=== PATIENT | female | born 1940 | race Caucasian/White ===

== ENCOUNTER 2022-01-25 19:50 | Emergency (ER) | payer MEDICARE, SELFPAY ==
--- NOTE | 2022-01-25 19:53 | XRR_ITS ---
PROCEDURE INFORMATION: Exam: XR Chest Exam date and time: 01/25/2022 8:37 PM Age: 81 years old Clinical indication: Pain; Other: Chest tightness; Additional info: Cp TECHNIQUE: Imaging protocol: XR of the chest. Views: 1 view. COMPARISON: No relevant prior studies available. FINDINGS: Lungs: Calcified granuloma in the right mid lung. Mild atelectasis or scarring in the left lung base. Pleural spaces: Unremarkable. No pleural effusion. No pneumothorax. Heart/Mediastinum: Unremarkable. No cardiomegaly. Bones/joints: Unremarkable. XR/XR chest 1V portable [id number] IMPRESSION: No acute finding.
--- NOTE | 2022-01-25 19:54 | ECG_ITS ---
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 Measurements Intervals [place] Rate: 87 P: 74 [place]: 198 QRS: -38 QRSD: 113 T: 19 QT: 286 QTc: 345 Interpretive Statements SINUS RHYTHM LEFT AXIS DEVIATION [QRS AXIS < -30] SEPTAL MYOCARDIAL INFARCTION , OF INDETERMINATE AGE [40+ ms Q WAVE IN V1/V2] No previous ECG available for comparison Electronically Signed On 01-25-2022 20:14:41 CDT by Ulysses Perez M.D. [id number]
[2022-01-25 20:01] VITALS: BP 118/67; PULSE 91; RESP 16; TEMP 36.4; O2SAT 95; BMI 22.3
--- NOTE | 2022-01-25 20:46 | W.ED.CHESTPA ---
HPI - Chest Pain General: Chief Complaint: Chest Pain Stated Complaint: Chest is tight Time Seen by Provider: 01/25/22 20:34 History of Present Illness: Patient is a 81-year-old female who comes to the ED with chest tightness. Symptoms started in the afternoon today. She denies that there is any chest pain and just describes it as feeling short of breath and tight when she breathes. Denies any history of COPD, heart failure or past IN. Patient said that her daughter earlier this week and she came down to [place] today to help with the preparations. She is staying at a friend's house and says that home is really warm and stuffy and when they returned to her friend's house after the home is when she started developing the symptoms. She was saying she cannot breathe because it so stuffy in the house. She says the only medication she takes is a pain med that helps with her chronic back pain. Denies any history of hypertension, diabetes and denies any other daily medications. Associated symptoms: Reports dyspnea; Deny abdominal pain, fever(s), nausea, palpitations or vomiting Review of Systems Const: Denies: fever(s), chills or fatigue Eyes: Denies: change in vision or eye discomfort ENMT: Denies: throat pain, odynophagia, nasal discharge or nasal congestion Card: Denies: chest pain, palpitations, edema, swelling of feet/ankles, dyspnea on exertion or orthopnea Resp: Reports: dyspnea; Denies: productive cough or non-productive cough GI: Denies: abdominal pain, nausea, vomiting, diarrhea, constipation or hematochezia : Denies: flank pain, dysuria or hematuria Musc: Denies: neck pain, back pain or extremity swelling Skin/Breast: Denies: rash or new lesions Neuro: Denies: headache(s), numbness in extremities or weakness in extremities PFSH ED PFSH: Surgical History No pertinent past surgical history Physical Exam Const: COMMON NORMALS: no acute distress, patient oriented x3 and alert GENERAL APPEARANCE: cooperative and comfortable HENMT: COMMON NORMALS: normocephalic HEAD & SCALP: normocephalic MOUTH: Normal oral and palatal mucosa present THROAT: posterior oropharynx normal and uvula midline Neck/C-Spine: COMMON NORMALS: supple GENERAL: Yes normal visual inspection Resp: COMMON NORMALS: normal respiratory effort, No retractions, No use of accessory muscles and clear to auscultation bilaterally AUSCULTATION: clear to auscultation bilaterally OTHER: Patient appeared in no respiratory distress and is not using any accessory muscles to breathe. Cardio: COMMON NORMALS: regular rate, regular rhythm, S1 normal heart sound present, No gallops present (Cardio), No clicks present (Cardio) and Peripheral pulses 2+ throughout RATE: regular rate RHYTHM: regular rhythm HEART SOUNDS: S1 normal heart sound present and Murmur heart sound present systolic Intensity: III/ PERIPHERAL PULSES: Peripheral pulses 2+ throughout GI: COMMON NORMALS: Normal to inspection, nondistended, normoactive bowel sounds present, Soft to palpation, non-tender and no masses PALPATION: Yes Soft to palpation : COMMON NORMALS: Yes no CVA tenderness BLADDER/KIDNEY EXAM: Yes no CVA tenderness Back/Pelvis: COMMON NORMALS: no CVA tenderness Extremity: COMMON NORMALS: normal to inspection and no pedal edema Neuro: COMMON NORMALS: patient oriented x3 and moves all extremities SENSORIUM/ORIENTATION: Yes alert Skin: GENERAL SKIN EXAM: dry skin Course Vital Signs: Vital signs: Vital Signs Temperature 97.6 F 01/25/22 20:01 Pulse Rate 91 01/25/22 20:01 Respiratory Rate 16 01/25/22 20:01 Blood Pressure 118/67 01/25/22 20:01 Pulse Oximetry 95 01/25/22 20:01 MDM - Chest Pain Medical Decision Making Patient is a 81-year-old female comes to the ED with chest tightness and shortness of breath. She denies any chest pain. Patient is healthy for age and does not have any cardiac or lung history. Patient lives in [place] and came here to [place] because her daughter and they are having her this weekend. She thinks some of her symptoms are due to the stress of daughter passing. Vitals are stable patient's O2 sats 95% on room air. She appears nontoxic and in no acute distress or pain. Lungs were clear to station bilaterally and patient does have a systolic murmur upon exam. Patient is a EKG showed no acute findings. Labs and chest x-ray ordered and are pending. Patient did not want to stay here in the ED and do any further testing. I discussed with patient the risks of her leaving and trying to get her to stay for testing. Patient understood and said she will sign an AMA form. I told her to come back to the ED immediately if she is still having any chest pain or shortness of breath. She signed an AMA form and left ED. 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
--- NOTE | 2022-01-25 21:07 | PC.NURSE ---
Pt stated I need to leave I don't want to wait. I got to get home now. Pt signed AMA paper and was transferred out via wheel chair.
--- NOTE | 2022-01-25 21:20 | PC.NURSE ---
Pt was educated on the risks of leaving AMA including . Pt stated that she understood but she was still leaving. She denied any chest pain and stated that she just wanted to get home and go to bed becuase she was tired and had not slept but 4 hours. PT was wheeled out of ED to private car and told to please come back if symptoms return.
== END 2022-01-25 21:47 | disposition left against medical advice (07) ==
PROVIDERS: Emergency Provider Physician Assistant
DX: R07.9 Chest pain, unspecified (principal); Z53.29 Procedure and treatment not carried out because of patient's decision for other reasons
CPT/HCPCS: 71045; 93005; 99284

== ENCOUNTER 2024-01-12 10:37 | Emergency (ER) | payer MEDICARE, SELFPAY ==
--- NOTE | 2024-01-12 10:39 | ECG_ITS ---
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 Measurements Intervals [place] Rate: 77 P: 63 [place]: 206 QRS: 15 QRSD: 101 T: 49 QT: 338 QTc: 383 Interpretive Statements SINUS RHYTHM INDETERMINATE AXIS PATTERN CONSISTENT WITH PULMONARY DISEASE Compared to ECG 01/25/2022 20:04:38 Indeterminate axis now present Left-axis deviation no longer present Myocardial infarct finding no longer present Electronically Signed On 01-12-2024 22:49:25 CDT by Jorge Matt M.D. [id number]
--- NOTE | 2024-01-12 10:39 | XRR_ITS ---
PROCEDURE INFORMATION: Exam: XR Chest Exam date and time: 01/12/2024 11:09 AM Age: 83 years old Clinical indication: Cough and dyspnea and shortness of breath; Additional info: Dyspnea/cough TECHNIQUE: Imaging protocol: Radiologic exam of the chest. Views: 1 view. COMPARISON: CR XR chest 1V portable [id number] 01/25/2022 8:37 PM FINDINGS: Lungs: Calcified granulomas again noted. No significant airspace consolidation concerning for pneumonia. Pleural spaces: No pneumothorax. No large pleural effusion. Heart/Mediastinum: The cardiomediastinal silhouette is within normal limits. Bones/joints: Unremarkable. XR/XR chest 1V portable [id number] IMPRESSION: No acute cardiopulmonary abnormality identified.
[2024-01-12 10:44] VITALS: BP 114/80; PULSE 78; TEMP 36.7; O2SAT 93; BMI 28.8
[2024-01-12 11:07] VITALS: BP 95/60; PULSE 76; RESP 20; O2SAT 92
[2024-01-12 11:14] LABS: Basophils # 0.1 10^3/uL (0.0-0.1); Basophils % 0.6 %; Eosinophils # 0.3 10^3/uL (0.0-0.8); Hematocrit 36.8 % (36-47); Lymphocytes # 1.8 10^3/uL (0.8-4.8); Mean Corpuscular HGB Conc 34.8 g/dL (30-55); Mean Corpuscular Hemoglobin 29.5 pg (27-33); Mean Corpuscular Volume 84.8 fl (85-98); Mean Platelet Volume 9.8 fL (7.4-10.4); Monocytes # 1.1 10^3/uL (0.2-0.9); Monocytes % 11.2 %; Neutrophils # 6.35 10^3/uL (1.8-7.7); Neutrophils % 65.8 %; Nucleated Red Blood Cells % 0 %; Platelet Count 201 10^3/cmm (157-399); Red Blood Count 4.34 10^6/uL (3.85-5.65); White Blood Count 9.65 10^3/uL (3.29-11.43)
--- NOTE | 2024-01-12 11:16 | PC.PHAR ---
PT IS FROM [facility]
--- NOTE | 2024-01-12 11:21 | ED_ITS ---
HPI - SOB/Dyspnea 2 General: Chief Complaint: Shortness of Breath/Dyspnea Stated Complaint: SOB Time Seen by Provider: 01/12/24 10:39 Source: patient Mode of arrival: ambulatory History of Present Illness: HPI Narrative: 83-year-old female who presents to the mergency room with complaints of shortness of breath. She says increased swelling in her legs as well as some mild orthopnea as demonstrated during the course of exam she denies chest pain no fever sweats or chills [place]. On arrival her oxygen sat is 92 to 93% on room air blood pressure is slightly low at 95/60. MD elicited complaint: shortness of breath Associated symptoms: Reports orthopnea; Deny abdominal pain, chest pain, fever(s), nausea, palpitations or vomiting Review of Systems 2 Const: Denies: fever(s) or chills Card: Reports: edema, swelling of feet/ankles, dyspnea on exertion and orthopnea; Denies: chest pain or palpitations Resp: Reports: dyspnea GI: Denies: abdominal pain, nausea or vomiting : Denies: dysuria, urinary frequency or urinary urgency Musc: Denies: neck pain or back pain Skin/Breast: Denies: rash PFSH ED 2 PFSH: Surgical History No pertinent past surgical history Physical Exam 2 Const: GENERAL APPEARANCE: cooperative and comfortable O RIENTATION/CONSCIOUSNESS: Yes awake HENMT: COMMON NORMALS: normocephalic, atraumatic and hearing grossly normal bilaterally HEAD & SCALP: normocephalic and atraumatic Resp: COMMON NORMALS: normal respiratory effort, No retractions and No use of accessory muscles AUSCULTATION: crackles Cardio: COMMON NORMALS: regular rate, regular rhythm and No murmurs present (Cardio) RATE: regular rate RHYTHM: regular rhythm GI: COMMON NORMALS: Soft to palpation and No hepatosplenomegaly present A USCULTATION: Yes normoactive bowel sounds PALPATION: Yes Soft to palpation, No Tenderness to palpation present (GI), No Guarding due to palpation present (GI) and Yes No hepatosplenomegaly present Extremity: COMMON NORMALS: normal to inspection, capillary refill normal, no clubbing, cyanosis or edema, no calf tenderness and no pedal edema Skin: COMMON NORMALS: no rashes or lesions noted GENERAL SKIN EXAM: no rashes or lesions noted Course 2 Vital Signs: Vital signs: Vital Signs Temperature 98.1 F 01/12/24 10:44 Pulse Rate 85 01/12/24 14:34 Respiratory Rate 16 01/12/24 14:34 Blood Pressure 115/91 01/12/24 14:34 Pulse Oximetry 94 01/12/24 14:34 Oxygen Delivery Me thod Room Air 01/12/24 12:30 MDM - SOB/Dyspnea Medical Decision Making Fluid overloaded but no decompensated congestive heart failure at this time. She is on hydrochlorothiazide we will add Lasix 20 mg daily and potassium supplement as well. She was given diuretic here will discharge patient home and have her follow-up with primary care through the senior care. Oxygen sats remain well compensated on 2 L which is typical for her. Medical Records I reviewed the patient's medical records. Lab Data I reviewed the patient's lab results. 01/12/24 10:50 01/12/24 10:50 Labs/Radiology: Radiology Impressions Chest X-Ray 01/12/24 10:39 IMPRESSION: No acute cardiopulmonary abnormality identified. Laboratory Results WBC 9.65 10^3/uL (3.29-11.43) 01/12/24 10:50 RBC 4.34 10^6/uL (3.85-5.65) 01/12/24 10:50 Hgb 12.80 g/dL (11.27-16.99) 01/12/24 10:50 Hct 36.8 % (36-47) 01/12/24 10:50 MCV 84.8 fl (85-98) L 01/12/24 10:50 MCH 29.5 pg (27-33) 01/12/24 10:50 MCHC 34.8 g/dL (30-55) 01/12/24 10:50 RDW 14.0 % (12.1-15.1) 01/12/24 10:50 Plt Count 201 10^3/cmm (157-399) 01/12/24 10:50 MPV 9.8 fL (7.4-10.4) 01/12/24 10:50 Neut % (Auto) 65.8 % 01/12/24 10:50 Lymph % (Auto) 19.0 % 01/12/24 10:50 [place] % (Auto) 11.2 % 01/12/24 10:50 Eos % (Auto) 3.0 % 01/12/24 10:50 Baso % (Auto) 0.6 % 01/12/24 10:50 Neut # (Auto) 6.35 10^3/uL (1.8-7.7) 01/12/24 10:50 Lymph # (Auto) 1.8 10^3/uL (0.8-4.8) 01/12/24 10:50 [place] # (Auto) 1.1 10^3/uL (0.2-0.9) H 01/12/24 10:50 Eos # (Auto) 0.3 10^3/uL (0.0-0.8) 01/12/24 10:50 Baso # (Auto) 0.1 10^3/uL (0.0-0.1) 01/12/24 10:50 Nucleated RBC % (auto) 0 % 01/12/24 10:50 Nucleated RBCs # 0.0 /100WBC 01/12/24 10:50 Sodium 134 mmol/L (136-145) L 01/12/24 10:50 Potassium 3.8 mmol/L (3.5-5.1) 01/12/24 10:50 Chloride 93 mmol/L (98-107) L 01/12/24 10:50 Carbon Dioxide 29 mmol/L (22-29) 01/12/24 10:50 Anion Gap 15.8 (5-19) 01/12/24 10:50 BUN 10 mg/dL (8-23) 01/12/24 10:50 Creatinine 0.8 mg/dL (0.5-0.9) 01/12/24 10:50 GFR Calculation Not Reportable 01/12/24 10:50 Glucose 106 mg/dL (65-115) 01/12/24 10:50 Calculated Osmolality 277 mOsm/kg (285-295) L 01/12/24 10:50 Calcium 9.2 mg/dL (8.5-10.5) 01/12/24 10:50 Total Bilirubin 0.3 mg/dL (0.15-1.2) 01/12/24 10:50 AST 28 U/L (0-32) 01/12/24 10:50 ALT 25 U/L (0-33) 01/12/24 10:50 Alkaline Phosphatase 95 U/L (35-105) 01/12/24 10:50 Troponin T Baseline 20 ng/L (0-10) H 01/12/24 10:50 Troponin T 120 Minute 17.59 ng/L (0-10) H 01/12/24 12:50 Delta Troponin T -2.41 ABS# (0-10) L 01/12/24 12:50 NT-Pro-B Natriuret Pep 181 pg/mL (0-450) 01/12/24 10:50 Total Protein 6.4 g/dL (6.6-8.7) L 01/12/24 10:50 Albumin 3.6 g/dL (3.5-5.2) 01/12/24 10:50 Globulin 2.8 g/dL (1.3-4.6) 01/12/24 10:50 All radiology interpretation(s) finalized by discharge Discharge Plan Discharge Patient Disposition: Home Clinical Impression: Leg edema Condition: Stable Prescriptions: New Lasix 20 mg tablet 20 mg PO DAILY Qty: 10 0RF potassium chloride 10 mEq tablet extended release 10 meq PO DAILY Qty: 20 0RF No Action carvedilol 12.5 mg tablet 12.5 mg PO BID albuterol sulfate 2.5 mg /3 mL (0.083 %) solution for nebulization 2.5 mg inhalation Q4H PRN (Reason: COUGH AND WHEEZING) alendronate 70 mg tablet 70 mg PO Q7D risperidone 0.25 mg tablet 0.25 mg PO BID trazodone 100 mg tablet 100 mg PO BEDTIME omeprazole 20 mg capsule,delayed release(DR/EC) 20 mg PO QAM hydrochlorothiazide 25 mg tablet 25 mg PO DAILY fluticasone propionate 50 mcg/actuation spray,suspension 1 spray INTRANASAL BEDTIME sertraline 50 mg tablet 50 mg PO BEDTIME oxycodone 20 mg tablet 20 mg PO Q6H PRN (Reason: Pain, Moderate TO SEVERE) acetaminophen 325 mg Tablet 650 mg PO Q8H PRN (Reason: Pain, Mild OR FEVER) Sandy 60 mg Tablet 60 mg PO BID Senokot-S 8.6-50 mg Tablet 1 tab-cap PO BID PRN (Reason: Constipation) Aspir-81 81 mg Tablet,Delayed Release (Dr/Ec) 81 mg PO QAM Robafen 100 mg/5 mL Liquid 200 mg PO Q4H PRN (Reason: Cough) Milk of Magnesia 400 mg/5 mL Suspension 5 ml PO DAILY PRN (Reason: Constipation) bisacodyl 10 mg Suppository 10 mg NH DAILY PRN (Reason: Constipation) Fleet Enema 19-7 gram/118 mL Enema 118 ml NH DAILY PRN (Reason: Constipation) Vitamin B-6 50 mg Tablet 50 mg PO DAILY Discharge Orders: Discharge ED (Routine); Ordered 01/12/24 Ordered By: Ron Chavez Discharge Diet: Usual diet Discharge Activity: Resume usual activity Patient Instructions: Opioid Safety, Pain Management Activity Restrictions/Additional Instructions: Thank you for choosing [facility] for your healthcare needs today. Please realize this is an emergency room and that we are providing you with a medical screening exam and this may not be complete and all inclusive of all the testing and or work up that you may need to determine your ailment or severity of your illness. It is very important that you follow up as instructed or that you return to the Emergency Department should you have concerns or if your condition changes or worsens in any way. You were seen today complaining of swelling in her legs and difficulty breathing there is no sign of decompensated heart failure legs due to significant amount of swelling recommend he start on Lasix 20 mg daily and also take a potassium supplement 10 mill equivalents daily. He should follow-up with your primary care provider at the senior care early next week. Coding Level of Care Code ED Cost Analyst for Rylee Burnham
[2024-01-12] MEDS: FUROsemide 10 mg/mL SDV 4mL 40 MG IVP (11:23)
[2024-01-12 11:32] LABS: Troponin(5th) Baseline 20 ng/L (0-10)
[2024-01-12 11:35] LABS: Alanine Aminotransferase 25 U/L (0-33); Albumin Level 3.6 g/dL (3.5-5.2); Alkaline Phosphatase 95 U/L (35-105); Aspartate Amino Transferase 28 U/L (0-32); Blood Urea Nitrogen 10 mg/dL (8-23); Calcium 9.2 mg/dL (8.5-10.5); Carbon Dioxide 29 mmol/L (22-29); Chloride 93 mmol/L (98-107); Globulin 2.8 g/dL (1.3-4.6); Glucose 106 mg/dL (65-115); Osmolality Calculated 277 mOsm/kg (285-295); Sodium 134 mmol/L (136-145); Total Bilirubin 0.3 mg/dL (0.15-1.2); Total Protein 6.4 g/dL (6.6-8.7)
[2024-01-12 11:40] LABS: Anion Gap 15.8 (5-19); Potassium 3.8 mmol/L (3.5-5.1)
[2024-01-12 11:46] LABS: NT Pro B Type Natriuretic Pept 181 pg/mL (0-450)
[2024-01-12 12:04] VITALS: BP 139/81; PULSE 73; RESP 15; O2SAT 91
[2024-01-12 12:30] VITALS: BP 120/67; PULSE 77; O2SAT 96
[2024-01-12] MEDS: LORazepam 2 mg/mL INJ 10 mL MDV 1 MG IVP (13:02)
[2024-01-12 13:25] LABS: Troponin 5 2HR 17.59 ng/L (0-10); Troponin 5 2HR Delta -2.41 ABS# (0-10)
[2024-01-12 14:34] VITALS: BP 115/91; PULSE 85; RESP 16; O2SAT 94
--- NOTE | 2024-01-12 16:39 | ECG_ITS ---
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 Measurements Intervals [place] Rate: 77 P: 56 [place]: 213 QRS: -10 QRSD: 101 T: 32 QT: 370 QTc: 420 Interpretive Statements SINUS RHYTHM WITH FIRST DEGREE AV BLOCK INDETERMINATE AXIS POSSIBLE ANTERIOR MYOCARDIAL INFARCTION , PROBABLY OLD [30 ms Q WAVE IN V3/V4, OR R < 0.2 mV IN V4] Compared to ECG 01/12/2024 10:52:19 First degree AV block now present Myocardial infarct finding now present Electronically Signed On 01-12-2024 23:05:46 CDT by Jorge Matt M.D. [email or web address] ([email or web address] [facility]/store/OM/[id number]
== END 2024-01-12 15:25 | disposition home or self-care (01) ==
PROVIDERS: Emergency Provider Family Medicine; PCP Internal Medicine
DX: R60.0 Localized edema (principal); Z79.82 Long term (current) use of aspirin
CPT/HCPCS: 36415; 71045; 80053; 83880; 84484; 85025; 93005; 96374; 96375; 99285; J1940; J2060

== ENCOUNTER 2025-02-14 13:47 | Outpatient (CLI) | payer MEDICARE, SELFPAY ==
--- NOTE | 2025-02-14 13:57 | CT_ITS ---
WS: [id number] CT NECK WITH CONTRAST HISTORY: L JAW PAROTID GLAND INFECTION TECHNIQUE: Contiguous 2 mm axial images are performed through the neck with intravenous contrast. Sagittal and coronal reformats are also submitted. All CT scans at [facility] use at least one of these dose optimization techniques: automated exposure control; mA and/or kV adjustment per patient size (includes targeted exams where dose is matched to clinical indication); or iterative reconstruction. CONTRAST: CONTRAST: Omnipaque 350; 100 mL IV. DLP: 155.64 mGy.cm COMPARISON: None available. Abnormal LEFT parotid gland. Intraparotid peripherally enhancing masses are identified. There is marked peripheral enhancement and cystic centers of the lobulated mass centered in the parotid gland measuring 2.5 x 2.7 x 2.3 cm. There are several similar peripherally enhancing fluid collections within the gland. These are probably intraparotid abscesses or necrotic neoplasms. Predominantly involving the superficial gland but there there is one collection that extends deeper. The surrounding soft tissues are inflamed. There are several enhancing but not significantly enlarged cervical chain parotid lymph nodes. Largest lymph node is at level 2 measuring 11 mm on the LEFT. Smaller RIGHT cervical chain lymph nodes. Parotid duct is not dilated. RIGHT parotid gland is normal. There is a small benign intraparotid lymph node. Tongue base, oropharynx and nasopharynx and larynx are negative. Normal appearance of the thyroid. Calcified plaque in the carotid arteries extending into the aortic arch. Aortic arch is ectatic. Very small caliber RIGHT vertebral artery but it is patent. Severe centrilobular emphysema at the lung apices. Incompletely included is a soft tissue nodule in the RIGHT paratracheal region measuring 13 mm in diameter. This may be part of the azygos system but this cannot be confirmed on the imaging submitted as only a small portion is included. Severe degenerative cervical spine disease. C3 anterolisthesis by [address]/CT neck w con* [id number] IMPRESSION: 1. Multiloculated, peripherally enhancing masses centered in the LEFT parotid gland. The entire collection measures 2.5 x 2.7 x 2.3 cm. Differential includes multifocal parotid gland abscesses versus necrotic neoplasm. 2. Cervical chain mildly reactive lymph nodes versus early metastatic disease. Largest lymph node is 11 mm on the LEFT. 3. Soft tissue nodule incompletely included on this examination in the RIGHT p aratracheal region of the chest. Recommend follow-up chest CT with IV contrast. This may be part of the azygos system but could not be fully evaluated. Metast atic nodule is not excluded. 4. Severe centrilobular emphysema.
[2025-02-14 14:39] LABS: Blood Urea Nitrogen 9 mg/dL (8-23)
[2025-02-14] MEDS: iohexol 350 mg/mL 500 mL Btl (per mL) IV (14:49)
== END 2025-02-14 13:48 | disposition home or self-care (01) ==
LOC: RAD 13:49
PROVIDERS: PCP Internal Medicine; Visit Provider Physician Assistant
DX: K11.20 Sialoadenitis, unspecified (principal); R93.89 Abnormal findings on diagnostic imaging of other specified body structures; R59.0 Localized enlarged lymph nodes; J43.2 Centrilobular emphysema; I65.23 Occlusion and stenosis of bilateral carotid arteries; I70.0 Atherosclerosis of aorta; I77.819 Aortic ectasia, unspecified site; M47.892 Other spondylosis, cervical region; M43.12 Spondylolisthesis, cervical region
CPT/HCPCS: 70491; 82565; 84520

== ENCOUNTER 2025-06-02 17:11 | Inpatient (IN) | payer MEDICARE, SELFPAY ==
[2025-06-02 16:57] VITALS: BP 111/73; PULSE 97; RESP 17; TEMP 37.6; O2SAT 86; BMI 27.7
--- NOTE | 2025-06-02 17:02 | XRR_ITS ---
PROCEDURE INFORMATION: Exam: XR Chest Exam date and time: 06/02/2025 5:08 PM Age: 84 years old Clinical indication: Shortness of breath; Additional info: Short of breath TECHNIQUE: Imaging protocol: Radiologic exam of the chest. Views: 1 view. COMPARISON: CR XR chest 1V portable [id number] 01/12/2024 11:09 AM FINDINGS: Lungs: Calcified granulomas again seen. Low lung volumes. Mild streaky bibasilar opacities. Pleural spaces: Unremarkable. No pleural effusion. No pneumothorax. Heart/Mediastinum: Stable cardiomediastinal silhouette. Vasculature: Tortuous thoracic aorta with atherosclerotic calcifications. Bones/joints: No acute findings. XR/XR chest 1V portable [id number] IMPRESSION: Mild bibasilar opacities could represent infiltrate in the correct clinical setting.
--- NOTE | 2025-06-02 17:09 | ECG_ITS ---
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
--- OUTSIDE RECORDS SUMMARY | 2025-06-02 17:16 | XMS_ITS | Data Portability ---
Author Organization [place] - [facility], [facility], [facility] Address [address] [facility] [address] [place] [address] Assessment No assessment recorded. Plan of Treatment Reminders Order Date Submit Date Provider Last Modified By Organization Details Last Modified Time Details Appointments None record ed. Lab None record ed. Referral None record ed. Procedures None record ed. Surgeries None record ed. Imaging None record ed. Medication Orders None record ed. Patient TargetsNo targets recorded. Patient Instructions Encounter Date Encounter Id Patient Instructions Last Modified By Organization Details Last Modified Time 12/01/2024 [id number] staff reports 2 nights of not sleeping, pt reports she is sleeping during the day. Will give a few days to settle out. [email or web address] Not available 12/01/2024 13:10:58 12/19/2024 [id number] doing well, mood good. vitals stable. [email or web address] Not available 12/19/2024 12:21:30 02/06/2025 [id number] mass unchanged; US negative, but did not comment on enlarged area; CT of neck ordered. [email or web address] Not available 02/07/2025 15:28:51 04/03/2025 [id number] heating pads to eye tid Not available 04/03/2025 15:13:44 05/11/2025 [id number] frequently sleeping during the day, will decrease trazodone. [email or web address] Not available 05/11/2025 13:56:54 Reason for Referral None Reported. Results Created Date Observation Date Name Description Value Unit Range Abnormal Flag Note LastModifiedBy Organization Detail LastModifiedTime 02/02/2001/26/2025 imagi ng/di agnos tic resul t No observ ation record ed. [email or web address] [facility] [address], [place], [address], 02/09/2025 17:07:45 02/15/20 25 02/14/2025 CT, neck, soft tissu e, w/ contr ast No observ ation record ed. [email or web address] [facility] [address] [place], [address], 02/20/2025 18:10:32 Result Notes None recorded. Problems Name Problem SNOMED Code Status Onset Date Resolution Date Notes Provider Name and Address Organization Details Recorded Time Cerebral ischemia 005121340 Active 2022 SUJIT FISHER [facility], [facility] 3 14:18:19 Essential hypertensi on 84766023 [facility] 14:18:41 Anxiety 05598429 Active 2022 SUJIT cuevas [facility] 3 14:18:42 Persistent insomnia 934115904 Active 2022 SUJIT FISHER [facility], [facility] 3 14:18:51 Chronic obstructiv e pulmonary disease 44975348 [facility] 14:19:06 Spinal stenosis of lumbar region 11228107 Active 2022 [facility] 14:19:21 Chronic pain 38496805 Active 2022 SUJIT cuevas, [facility] 3 14:13:21 Vascular dementia without behavioral disturbanc e 6070744597706 9109 Active 2022 SUJIT cuevas [facility] 3 11:16:30 Congestive heart failure 12040764 Active 2023 SUJIT cuevas [facility] 4 12:45:28 Mass of neck 142000536 Active 2024 SUJIT cuevas [facility] 5 16:13:33 Problem Notes None recorded. Medical Equipment None Reported. Medications Name Sig Start Date Stop Date Status Note LastModified by Organization Details LastModified Time cyclobenzapr ine 10 mg tablet TAKE 1 TABLET BY MOUTH TWICE DAILY NEEDED active Not Available Not Available No t Available amoxicillin 500 mg capsule active Not Available Not Available Not Available furosemide 40 mg tablet active Not Available Not Available Not Available fluticasone 250 mcg-salmeter ol 50 mcg/dose blistr powdr for inhalation INHALE 1 PUFF BY MOUTH TWICE DAILY active Not Available Not Available No t Available carvedilol 25 mg tablet active Not Available Not Available Not Available prednisone 10 mg tablet active Not Available Not Available Not Available doxycycline hyclate 100 mg capsule active Not Available Not Available N ot Available carvedilol 12.5 mg tablet TAKE 1 TABLET BY MOUTH TWICE DAILY. active Not Available Not Available No t Available albuterol sulfate 2.5 mg/3 mL (0.083 %) solution for nebulization USE 1 VIAL VIA NEBULIZER EVERY 4 HOURS active Not Available Not Available No t Available trazodone 50 mg tablet TAKE 1 TO 2 TABLETS BY MOUTH DAILY AT BEDTIME active Not Available Not Available N ot Available azithromycin 250 mg tablet TK 2 TS PO ON DAY 1, THEN TK 1 T PO D FOR 4 DAYS active Not Available Not Available No t Available ondansetron HCl 4 mg tablet active Not Available Not Available Not Available prednisone 20 mg tablet active Not Available Not Available Not Available alendronate 70 mg tablet active Not Available Not Available Not Available potassium chloride ER 10 mEq tablet,exten ded release active Not Available Not Available Not Available chlorthalido ne 25 mg tablet TAKE 1 TABLET BY MOUTH DAILY active Not Available Not Available Not Available amlodipine 5 mg tablet TAKE 1 TABLET BY MOUTH EVERY DAY IN THE MORNING. active Not Available Not Available No t Available triamcinolon e acetonide 0.1 % topical cream active Not Available Not Available Not Available potassium chloride ER 20 mEq tablet,exten ded release(part /cryst) active Not Available Not Available Not Available lorazepam 0.5 mg tablet Take 1 tablet twice a day by oral route as needed for 30 days. active Not Available Not Available No t Available trazodone 100 mg tablet TAKE 1 TABLET BY MOUTH EVERY DAY AT BEDTIME active Not Available Not Available No t Available amlodipine 10 mg tablet active Not Available Not Available Not Available trazodone 150 mg tablet active Not Available Not Available Not Available omeprazole 20 mg capsule,gerardo yed release active Not Available Not Available Not Available hydroxyzine HCl 25 mg tablet TAKE 1 TABLET BY MOUTH EVERY 6 HOURS NEEDED FOR ANXIETY active Not Available Not Available No t Available hydrochlorot hiazide 25 mg tablet active Not Available Not Available No t Available furosemide 20 mg tablet active Not Available Not Available Not Available gabapentin 100 mg capsule TAKE 1 CAPSULE BY MOUTH EVERY 8 HOURS active Not Available Not Available No t Available nystatin 100,000 unit/gram topical powder active Not Available Not Available Not Available ibuprofen 600 mg tablet TAKE 1 TABLET BY MOUTH TWICE DAILY NEEDED active Not Available Not Available No t Available albuterol sulfate HFA 90 mcg/actuatio n aerosol inhaler active Not Available Not Available Not Available losartan 50 mg-hydrochlo rothiazide 12.5 mg tablet TAKE 1 TABLET BY MOUTH DAILY active Not Available Not Available Not Available methadone 5 mg tablet Take 1 tablet twice a day by oral route for 30 days. active Not Available Not Available No t Available fluticasone propionate 50 mcg/actuatio n nasal spray,suspen anabell SHAKE LIQUID AND USE 2 SPRAYS IN EACH NOSTRIL DAILY active Not Available Not Available No t Available sertraline 50 mg tablet active Not Available Not Available Not Available doxycycline hyclate 100 mg tablet active Not Available Not Available No t Available risperidone 0.5 mg tablet active Not Available Not Available Not Available diazepam 5 mg tablet TAKE 1 TABLET BY MOUTH 40 MINUTES PRIOR TO SCHEDULED PROCEDURE. DO NOT TAKE WITH BACLOFEN OR PAIN MEDICATION active Not Available Not Available N ot Available hydroxyzine pamoate 25 mg capsule active Not Available Not Available N ot Available duloxetine 30 mg capsule,gerardo yed release active Not Available Not Available Not Available oxycodone 20 mg tablet Take 1 tablet every 6 hours by oral route for 30 days. 2024 active Not Available Not Available Not Avai lable oxycodone 10 mg tablet Take 1 tablet every 6 hours by oral route as needed for 30 days. active Not Available Not Available No t Available potassium chloride ER 20 mEq tablet,exten ded release TAKE 1 TABLET BY MOUTH [facility] active Not Available Not Available No t Available Trelegy Ellipta 100 mcg-62.5 mcg-25 mcg powder for inhalation active Not Available Not Available N ot Available Vitals Date Recorded Heart rate Respiratory rate Body temperature Oxygen saturation Oxygen saturation in Arterial blood by Pulse oximetry Systolic And Diastolic Provider Name and Address Organization Details Last Updated DateTime 5 75 /min 20 /min 98.6 [degF] 94 % 94 % 140/70 mm[Hg] [facility] 5 13:08:50 Date Recorded Heart rate Respiratory rate Body temperature Oxygen saturation Oxygen saturation in Arterial blood by Pulse oximetry Systolic And Diastolic Provider Name and Address Organization Details Last Updated DateTime 5 80 /min 20 /min 97.8 [degF] 96 % 96 % 136/70 mm[Hg] [facility] 5 12:20:00 Date Recorded Heart rate Respiratory rate Body temperature Oxygen saturation Oxygen saturation in Arterial blood by Pulse oximetry Systolic And Diastolic Provider Name and Address Organization Details Last Updated DateTime 5 70 /min 20 /min 98.6 [degF] 96 % 96 % 122/68 mm[Hg] [facility] 5 16:10:55 Date Recorded Heart rate Respiratory rate Body temperature Oxygen saturation Oxygen saturation in Arterial blood by Pulse oximetry Systolic And Diastolic Provider Name and Address Organization Details Last Updated DateTime 5 85 /min 20 /min 97.4 [degF] 95 % 95 % 136/70 mm[Hg] [facility] 5 15:09:50 Date Recorded Heart rate Respiratory rate Body temperature Oxygen saturation Oxygen saturation in Arterial blood by Pulse oximetry Systolic And Diastolic Provider Name and Address Organization Details Last Updated DateTime 5 66 /min 18 /min 98.6 [degF] 97 % 97 % 140/72 mm[Hg] [facility] 5 13:55:03 Social History Question Answer Notes LastModified by [employer] Details LastModified Time Tobacco Smoking Status Unknown If Ever Smoked SUJIT SARABIA faith [facility] 12/30/2022 14:16:05 Have You Had Direct Contact, Or Contact During Intimacy, With Monkeypox Rash, Scabs, Or Body Fluids From A Person With Monkeypox? No Information not available 12/30/2022 Have You Recently Traveled Abroad? No [email or web address] Information not available 12/30/2022 Do You Have Difficulty Walking Or Climbing Stairs? Yes [email or web address] Information not available 12/30/2022 Sex: Unknown Functional Status Question Answer Note LastModified by [email or web address] Details LastModified Time Are you able to walk independently without assistance or assistive devices? NOWALK [email or web address] Information not available 12/30/2022 Do you have difficulty doing errands alone? Yes [email or web address] Information not available 12/30/2022 Are you able to care for yourself independently? No Information not available 12/30/2022 Do you have difficulty dressing, bathing, grooming, or toileting? Yes Information not available 12/30/2022 Mental Status Question Answer Note LastModified by Organization D etails LastModified Time Do you have difficulty concentrating, remembering or making decisions? Yes [email or web address] Information no t available 12/30/2022 Family History Nothing Reported. Medical History No medical history recorded. Gynecological HistoryNo gynecological history recorded. Obstetrics History GPAL:G 0 P 0 0 0 0 Immunizations Vaccine Type Date Status Note Provider Nam e and Address Organization Details Recorded Time Influenza, adjuvanted, trivalent, PF 9 completed [facility]24 10:05:53 Influenza, adjuvanted, quadrivalent, PF 3 [facility] 10:05:53 COVID-19, mRNA, LNP-S, PF, 100 mcg/0.5mL dose or 50 mcg/0.25mL dose 1 completed Nayla cuevas [facility] 05/13/2024 10:05:53 COVID-19, mRNA, LNP-S, PF, 100 mcg/0.5mL dose or 50 mcg/0.25mL dose 1 completed Nayla cuevas [facility] 05/13/2024 10:05:53 COVID-19, mRNA, LNP-S, PF, 100 mcg/0.5mL dose or 50 mcg/0.25mL dose 1 completed Nayla cuevas [facility] 05/13/2024 10:05:53 Pneumococcal conjugate PCV 13 6 completed Naylaady Perea [facility] 05/13/2024 10:05:53 Influenza, high-dose, trivalent, PF 6 completed Naylaady cuevas [facility] 05/13/2024 10:05:53 Influenza, split virus, trivalent, preservative 1 completed Nayla cuevas [facility] 05/13/2024 10:05:53 Influenza, split virus, trivalent, preservative 0 completed Naylaady Perea [facility] 05/13/2024 10:05:53 Past Encounters Encounter ID Performer Location Encounter Start Date Encounter Closed Date Diagnosis/Indication Diagnosis SNOMED-CT Code Diagnosis ICD10 Code Diagnosis IMO Codes Diagnosis Note [id number] Waldemar Randhawa DO [facility] ([facility]) [address] [place] [address] 12/30/2022 13:29:12 01/05/2023 17:09:52 Cerebral ischemia 128759416 I67.82 Anxiety 72869869 F41.9 Essential hypertension 69407494 I10 Persistent insomnia 1919 83687 G47.09 Chronic ob structive pulmonary disease 51067191 J44.9 Spinal jenelle nosis of lumbar region 61201573 M48.061 [id number] Waldemar Randhawa DO [facility] ([facility]) [address] [place] [address] 01/06/2023 08:09:44 01/12/2023 18:42:17 Spinal stenosis of lumbar region 88222625 M48.061 Anxiety 12935526 F41.9 Cerebral ischemia 241859 003 I67.82 Chronic ob structive pulmonary disease 78503317 J44.9 Chronic pain 23748024 G8 9.29 Essential hypertension 59642784 I10 [id number] Waldemar Randhawa DO [facility] ([facility]) [address] [place] [address] 02/17/2023 08:15:57 03/02/2023 13:40:37 Chronic obstructive pulmonary disease 54853435 J44.9 Spinal jenelle nosis of lumbar region 89313734 M48.061 Anxiety 16561721 F41.9 Cerebral ischemia 573292 003 I67.82 Chronic pain 76840810 G8 9.29 Essential hypertension 60181308 I10 [id number] Waldemar Randhawa DO [facility] ([facility]) [address] [place] [address] 03/31/2023 08:17:07 04/16/2023 10:39:54 Anxiety 66419919 F41.9 Chronic ob structive pulmonary disease 31123584 J44.9 Chronic pain 38457494 G8 9.29 Essential hypertension 26178567 I10 Persistent insomnia 1919 33117 G47.09 [id number] Waldemar Randhawa DO [facility] ([facility]) [address] [place] [address] 04/28/2023 09:05:47 05/31/2023 18:28:09 [id number] Waldemar Randhawa [facility] ([facility]) [address] [place] [id number] 05/14/2023 10:23:29 05/18/2023 14:44:07 Persistent insomnia 870132237 G47.09 Anxiety 94506476 F41.9 Cerebral ischemia 389052 003 I67.82 Chronic ob structive pulmonary disease 89673571 J44.9 Depressive disorder 3548 9007 F32.A Vascular d ementia without behavioral disturbance 2530569343 6277516 F01.50 [id number] Waldemar Randhawa [facility] ([facility]) [address] [place] [id number] 06/23/2023 09:05:02 07/05/2023 19:50:10 Chronic obstructive pulmonary disease 02092746 J44.9 Anxiety 27973097 F41.9 Chronic pain 24182209 G8 9.29 Essential hypertension 18534364 I10 Vascular d ementia without behavioral disturbance 9726718117 7057174 F01.50 [id number] Waldemar Randhawa [facility]) [address] [place] [address] 08/06/2023 08:20:46 08/11/2023 13:26:46 Chronic obstructive pulmonary disease 53602109 J44.9 Vascular d ementia without behavioral disturbance 4251990717 8290453 F01.50 Anxiety 39530420 F41.9 Essential hypertension 22204671 I10 [id number] Waldemar Randhawa [facility] ([facility]) [address] [place] [id number] 08/11/2023 13:46:34 2023 13:53:41 Vascular dementia without behavioral disturbance 1186995213 1646994 F01.50 Anxiety 14513011 F41.9 [id number] Waldemar Randhawa [facility]) [address] [place] [address] 08/27/2023 08:59:39 09/07/2023 19:10:15 Chronic obstructive pulmonary disease 82754514 J44.9 Anxiety 98198040 F41.9 Spinal jenelle nosis of lumbar region 68827379 M48.531 [id number] Waldemar Randhawa [facility] ([facility]) [address] [place] [id number] 09/30/2023 08:22:06 10/05/2023 21:51:07 Chronic obstructive pulmonary disease 74343031 J44.9 Candidiasis of skin 4988 3006 B37.2 [id number] Waldemar Randhawa [facility] ([facility]) [address] [id number] 10/27/2023 09:35:30 11/04/2023 06:54:08 Chronic obstructive pulmonary disease 39349059 J44.9 Vascular d ementia without behavioral disturbance 5707661215 7361441 F01.50 Chronic pain 20558171 G8 9.29 [id number] Waldemar Randhawa DO [facility] ([facility]) [address] [place], [place] [address] 11/12/2023 08:00:32 11/13/2023 13:31:44 Chronic obstructive pulmonary disease 17355280 J44.9 Anxiety 86712270 F41.9 Essential hypertension 52886057 I10 Spinal jenelle nosis of lumbar region 47634362 M48.298 [id number] Waldemar Randhawa DO [facility] ([facility]) [address] [place], [place] [phone] 11/26/2023 08:20:55 11/30/2023 13:14:39 [id number] Waldemar Randhawa [facility] ([facility]) [address] [place] [id number] 12/08/2023 08:17:01 12/10/2023 17:41:36 Essential hypertension 84084746 I10 Chronic pain 39520395 G8 9.29 Anxiety 16046383 F41.9 Chronic ob structive pulmonary disease 64081797 J44.9 [id number] Waldemar Randhawa DO [facility] ([facility]) [address] [place] [id number] 5 01/14/2024 07:54:18 01/19/2024 11:55:35 Chronic obstructive pulmonary disease 44278604 J44.9 Congestive heart failure 92413623 I50.9 [id number] Waldemar Randhawa [facility] ([facility]) [address] [place] [id number] 01/19/2024 07:56:13 01/25/2024 20:47:51 Chronic obstructive pulmonary disease 45261584 J44.9 Anxiety 60268041 F41.9 Persistent insomnia 1919 12030 G47.09 [id number] Waldemar Randhawa [facility] ([facility]) [address] [place] [address] 02/09/2024 08:05:23 02/16/2024 10:45:04 Chronic obstructive pulmonary disease 04671042 J44.9 Congestive heart failure 19292971 I50.9 [id number] Waldemar Randhawa DO [facility] ([facility]) [address] [place], [place] [phone] 03/03/2024 10:58:22 03/03/2024 17:42:54 Chronic obstructive pulmonary disease 20499970 J44.9 [id number] Waldemar Randhawa DO [facility] ([facility]) [address] [place], [place] [address] 03/15/2024 07:57:55 03/15/2024 17:53:56 Chronic obstructive pulmonary disease 65049968 J44.9 Anxiety 66930999 F41.9 Congestive heart failure 12541585 I50.9 [id number] Waldemar Randhawa DO [facility] ([facility]) [address] [place], [place] [address] 04/19/2024 08:25:02 04/19/2024 15:35:19 Chronic obstructive pulmonary disease 10363248 J44.9 Vascular d ementia without behavioral disturbance 2656198168 1569553 F01.50 Congestive heart failure 04108566 I50.9 [id number] Waldemar Randhawa [facility] ([facility]) [address] [place], [place] [address] 05/24/2024 08:13:23 05/25/2024 08:08:21 Vascular dementia without behavioral disturbance 1488400775 3408144 F01.50 Chronic ob structive pulmonary disease 42546796 J44.9 Anxiety 22945177 F41.9 [id number] Waldemar Randhawa [facility] ([facility]) [address] [place], [place] [address] 06/28/2024 08:33:22 06/28/2024 16:57:02 Chronic obstructive pulmonary disease 80432425 J44.9 Vascular d ementia without behavioral disturbance 7867975761 3176592 F01.50 Anxiety 27901767 F41.9 [id number] Waldemar Randhawa [facility] ([facility]) [address] [place], [place] [phone] 08/09/2024 07:58:52 08/16/2024 12:11:18 Chronic obstructive pulmonary disease 34542153 J44.9 Anxiety 97495413 F41.9 [id number] Waldemar Randhawa DO [facility] ([facility]) [address] [place], [place] [phone] 09/19/2024 13:32:32 09/22/2024 15:31:16 Vascular dementia without behavioral disturbance 3473654069 6771273 F01.50 Anxiety 78847157 F41.9 Chronic ob structive pulmonary disease 87954609 J44.9 Congestive heart failure 24250958 I50.9 Essential hypertension 37673020 I10 [id number] Waldemar Randhawa DO [facility] ([facility]) [address] [place], [place] [address] 09/27/2024 08:25:23 09/29/2024 11:00:55 Vascular dementia without behavioral disturbance 3050470720 8912106 F01.50 Anxiety 34120673 F41.9 Chronic ob structive pulmonary disease 85394571 J44.9 [id number] Waldemar Randhawa DO [facility] ([facility]) [address] [place] [address] 10/27/2024 13:05:33 11/11/2024 12:39:09 Chronic obstructive pulmonary disease 68769819 J44.9 Vascular d ementia without behavioral disturbance 3568717824 8740280 F01.50 Anxiety 84778220 F41.9 Congestive heart failure 12232064 I50.9 [id number] Waldemar Randhawa DO [facility] ([facility]) [address] [place] [address] 12/01/2024 09:20:32 12/06/2024 07:33:20 Chronic obstructive pulmonary disease 93229497 J44.9 Vascular d ementia without behavioral disturbance 0581548811 0482053 F01.50 Anxiety 35911147 F41.9 Congestive heart failure 08810391 I50.9 [id number] Waldemar Randhawa DO [facility] ([facility]) [address] [place] [address] 12/19/2024 07:53:00 12/28/2024 08:19:29 Chronic obstructive pulmonary disease 06733525 J44.9 Vascular d ementia without behavioral disturbance 8133380763 7581847 F01.50 Spinal jenelle nosis of lumbar region 43877615 M48.491 [id number] Waldemar Edis [facility] ([facility]) [address] [id number] 02/06/2025 14:36:14 02/07/2025 16:10:19 Vascular dementia without behavioral disturbance 8056481263 4345568 F01.50 Mass of neck 852943452 R 22.1 087987 [id number] Waldemar Randhawa DO [facility] ([facility]) [address] [place] [address] 5 04/03/2025 14:09:04 04/12/2025 13:48:39 Chronic obstructive pulmonary disease 32737069 J44.9 Vascular d ementia without behavioral disturbance 5990392485 1290869 F01.50 Hordeolum externum of lower eyelid of left eye 7396057484 11953 H00.114 [id number] Waldemar Randhawa DO [facility] ([facility]) [address] [place] [address] 05/11/2025 07:56:14 05/15/2025 16:33:56 Chronic obstructive pulmonary disease 51284815 J44.9 Vascular d ementia without behavioral disturbance 7186074425 4363894 F01.50 Congestive heart failure 07349446 I50.9 Health Concerns Section Related Observation LastModified by Organization Detai ls LastModified Time None Recorded Concern Status LastModified by Organization Details LastModified Time None Recorded Advance Directives Directive None Recorded Payers Insurance Date Sequence Insurance Name Policy Number Policy Ramos Covered Member ID Ramos Member ID Guarantor Name 05/11/2025 2 [employer] (MEDICARE SUPPLEMENT) [id number] 05/11/2025 1 [place] [id number] 05/11/2025 [place] [facility] ([place]IC[place]) [id number] Notes Date Note Type Note Provider Name and Address Organization Details Recorded Time 12/01/2024 text/html DementiaReported by PatientHPIFor associated symptoms, patient reportsdepressionandan xiety. For quality, patient reportsshort term memory lossandinability to reason. For severity, patient reportsmoderate. For context, patient reportsno alcohol use.ROS as noted in the HPI Waldemar Randhawa DO [address] [place] [address], [phone], [facility] 12/05/2024 17:51:02 12/19/2024 text/html DementiaReported by PatientIFor associated symptoms, patient reportsdepressionandan xiety. For quality, patient reportsshort term memory lossandinability to reason. For severity, patient reportsmoderate. For context, patient reportsno alcohol use.ROS as noted in the HPI Waldemar Randhawa [address] [place] [address], [phone], [facility] 12/26/2024 16:20:03 02/06/2025 text/html DementiaReported by PatientIFor associated symptoms, patient reportsdepressionandan xiety. For quality, patient reportsshort term memory lossandinability to reason. For severity, patient reportsmoderate. For context, patient reportsno alcohol use.ROS as noted in the HPI lump on left side of neck, US negative. CT ordered. Waldemar Randhawa DO [address] [place] [address], [phone], [facility] 02/07/2025 15:29:07 04/03/2025 text/html DementiaReported by PatientIFor associated symptoms, patient reportsdepressionandan xiety. For quality, patient reportsshort term memory lossandinability to reason. For severity, patient reportsmoderate. For context, patient reportsno alcohol use.ROS as noted in the HPI stye in left eye, reports it doesn't hurt. Waldemar Randhawa [address] [place] [address], [phone], [facility] 04/11/2025 17:43:42 05/11/2025 text/html DementiaReported by PatientHPIFor associated symptoms, patient reportsdepressionandan xiety. For quality, patient reportsshort term memory lossandinability to reason. For severity, patient reportsmoderate. For context, patient reportsno alcohol use.ROS as noted in the HPI staff reports sleeping a lot during the day. Waldemar Randhawa DO [address] [place] [address], [phone], [facility] 05/14/2025 13:51:51 OBGyn Episode No OBEpisode recorded.
[2025-06-02 17:18] LABS: Hematocrit 36.8 % (36-47); Hemoglobin 12.00 g/dL (11.27-16.99); Mean Corpuscular HGB Conc 32.6 g/dL (30-55); Mean Corpuscular Hemoglobin 28.1 pg (27-33); Mean Corpuscular Volume 86.2 fl (85-98); Platelet Count 222 10^3/cmm (157-399); Red Blood Count 4.27 10^6/uL (3.85-5.65)
--- NOTE | 2025-06-02 17:30 | W.ED.SOB ---
Documented by User: TAYLOR Bruno 06/02/25 20:24 HPI - SOB/Dyspnea General: Chief Complaint: Shortness of Breath/Dyspnea Stated Complaint: SOB History of Present Illness: HPI Narrative: Patient is a 84-year-old female from [facility], DNR, chronically on 2 L/min, presents to the ED due to low oxygen saturation. She was in her normal state of health. She does have memory and ambulatory issues, however dementia is not defined on her chart here and family is not present, presents to vital signs, noted these to be 80% oxygen saturation on 2 L. The rest of her vital signs were stable at the facility for which she is a resident, and EMS was called. Patient does not really have any complaints. She is cordial, and does not remember any concerns of her day. She denies any shortness of breath, fever. On her baseline 2 L/min, 88% was achieved here. She had 99.6 ?F. No known sick contact, however she [facility] Associated symptoms: Deny abdominal pain, chest pain, fever(s), nausea, palpitations or vomiting Related Data Home Medications ?Medication ?Instructions ?Recorded ?Confirmed acetaminophen 325 mg tablet 650 mg PO Q8H PRN Pain, Mild OR 01/12/24 01/12/24 FEVER albuterol sulfate 2.5 mg/3 mL 2.5 mg inhalation Q4H PRN COUGH 01/12/24 01/12/24 (0.083 %) solution for nebulization AND WHEEZING alendronate 70 mg tablet 70 mg PO Q7D 01/12/24 01/12/24 aspirin 81 mg tablet,delayed 81 mg PO QAM 01/12/24 01/12/24 release bisacodyl 10 mg rectal suppository 10 mg HI DAILY PRN Constipation 01/12/24 01/12/24 carvedilol 12.5 mg tablet 12.5 mg PO BID 01/12/24 01/12/24 fexofenadine 60 mg tablet 60 mg PO BID 01/12/24 01/12/24 fluticasone propionate 50 1 spray intranasal BEDTIME 01/12/24 01/12/24 mcg/actuation nasal spray,suspension guaifenesin 100 mg/5 mL oral 200 mg PO Q4H PRN Cough 01/12/24 01/12/24 liquid (Robafen) hydrochlorothiazide 25 mg tablet 25 mg PO DAILY 01/12/24 01/12/24 magnesium hydroxide 400 mg/5 mL 5 ml PO DAILY PRN Constipation 01/12/24 01/12/24 oral suspension (Milk of Magnesia) omeprazole 20 mg capsule,delayed 20 mg PO QAM 01/12/24 01/12/24 release oxycodone 20 mg tablet 20 mg PO Q6H PRN Pain, Moderate TO 01/12/24 01/12/24 SEVERE pyridoxine (vitamin B6) 50 mg 50 mg PO DAILY 01/12/24 01/12/24 tablet (Vitamin B-6) risperidone 0.25 mg tablet 0.25 mg PO BID 01/12/24 01/12/24 sennosides 8.6 mg-docusate sodium 1 tab-cap PO BID PRN Constipation 01/12/24 01/12/24 50 mg tablet (Senokot-S) sertraline 50 mg tablet 50 mg PO BEDTIME 01/12/24 01/12/24 sodium phosphates 19 gram-7 118 ml HI DAILY PRN Constipation 01/12/24 01/12/24 gram/118 mL enema (Fleet Enema) trazodone 100 mg tablet 100 mg PO BEDTIME 01/12/24 01/12/24 Previous Rx's ?Medication ?Instructions ?Recorded furosemide 20 mg tablet (Lasix) 20 mg PO DAILY #10 tabs 01/12/24 potassium chloride 10 mEq 10 meq PO DAILY #20 tabs 01/12/24 tablet,extended release Allergies Allergy/AdvReac Type Severity Reaction Status Date / Time No Known Allergies Allergy Verified 01/25/22 20:07 Review of Systems Const: Denies: fever(s) or chills Card: Denies: chest pain or palpitations Resp: Reports: dyspnea GI: Denies: abdominal pain, nausea or vomiting : Denies: dysuria, urinary frequency or urinary urgency Musc: Denies: neck pain or back pain Skin/Breast: Denies: rash Neuro: Denies: headache(s) or numbness in extremities PFSH ED PFSH: Surgical History No pertinent past surgical history Physical Exam Const: GENERAL APPEARANCE: cooperative and comfortable ORIENTATION/CONSCIOUSNESS: Yes awake HENMT: COMMON NORMALS: normocephalic, atraumatic and hearing grossly normal bilaterally HEAD & SCALP: normocephalic and atraumatic Neck/C-Spine: COMMON NORMALS: full ROM, no lymphadenopathy, supple and no meningeal signs Lymph: LYMPHATIC: no lymphadenopathy noted Chest: COMMONS NORMALS: normal inspection of the chest Resp: COMMON NORMALS: normal respiratory effort, No retractions and No use of accessory muscles AUSCULTATION: bronchial breath sounds bilateral Cardio: COMMON NORMALS: regular rate, regular rhythm and No murmurs present (Cardio) RATE: regular rate RHYTHM: regular rhythm GI: COMMON NORMALS: Soft to palpation and No hepatosplenomegaly present AUSCULTATION: Yes normoactive bowel sounds PALPATION: Yes Soft to palpation, No Tenderness to palpation present (GI), No Guarding due to palpation present (GI) and Yes No hepatosplenomegaly present : COMMON NORMALS: Yes no CVA tenderness BLADDER/KIDNEY EXAM: Yes no CVA tenderness Back/Pelvis: COMMON NORMALS: no CVA tenderness Extremity: COMMON NORMALS: normal to inspection, capillary refill normal, no clubbing, cyanosis or edema, no calf tenderness and no pedal edema Neuro: MENINGEAL SIGNS: Yes no meningeal signs Psych: COMMON NORMALS: mental status grossly normal, Normal thought process present, cooperative and normal affect THOUGHT PROCESS: Normal thought process present Skin: COMMON NORMALS: no rashes or lesions noted GENERAL SKIN EXAM: no rashes or lesions noted Course Reevaluation(s): Reevaluation #1: Patient is doing fine without change. She is pleasant. Refused her blood cultures. Consultations: Consultation #1: Dr. Boateng/hospitalist accepted admission Vital Signs: Vital signs: Vital Signs Temperature 99.6 F 06/02/25 16:57 Pulse Rate 96 06/02/25 18:30 Respiratory Rate 25 H 06/02/25 18:30 Blood Pressure 116/63 06/02/25 18:30 Pulse Oximetry 89 L 06/02/25 18:30 Oxygen Delivery Me thod Nasal Cannula 06/02/25 18:00 Oxygen Flow Rate 2 06/02/25 18:00 MDM - SOB/Dyspnea Medical Decision Making 84-year-old female that reports to the emergency room with low oxygen saturation. On workup, she has multi lobar pneumonia. Unknown if this is secondary to aspiration. She is essentially a nonhistorian. Procalcitonin level is high, WBC is 30.8 raising the question of concern for abscess/empyema, however this is not appear to be present or pleural effusion on chest x-ray. Will obtain hospitalist consultation for admission inpatient. Patient is calm, kind, and does not have any concerns at this time. She did however refuse blood cultures, and repeat lactic acid, which she is entitled to do. Lab Data 06/02/25 16:59 06/02/25 16:59 Labs/Radiology: Radiology Impressions Chest X-Ray 06/02/25 17:02 IMPRESSION: Mild bibasilar opacities could represent infiltrate in the correct clinical setting. Laboratory Results WBC 30.81 10^3/uL (3.29-11.43) H* 06/02/25 16:59 RBC 4.27 10^6/uL (3.85-5.65) 06/02/25 16:59 Hgb 12.00 g/dL (11.27-16.99) 06/02/25 16:59 Hct 36.8 % (36-47) 06/02/25 16:59 MCV 86.2 fl (85-98) 06/02/25 16:59 MCH 28.1 pg (27-33) 06/02/25 16:59 MCHC 32.6 g/dL (30-55) 06/02/25 16:59 RDW 15.7 % (12.1-15.1) H 06/02/25 16:59 Plt Count 222 10^3/cmm (157-399) 06/02/25 16:59 MPV 11.2 fL (7.4-10.4) H 06/02/25 16:59 Lymph % (Auto) Not Reportable 06/02/25 16:59 Hod[place] % (Auto) Not Reportable 06/02/25 16:59 Lymph # (Auto) Not Reportable 06/02/25 16:59 [place] # (Auto) Not Reportable 06/02/25 16:59 Total Counted 100 (0-100) 06/02/25 16:59 Atypical Lymphs % 0.0 % (0-5) 06/02/25 16:59 Absolute Neutrophils 29.3 10^3/cmm (1.4-6.5) H 06/02/25 16:59 Segmented Neutrophils 78 % 06/02/25 16:59 Band Neutrophils 17.0 % 06/02/25 16:59 Absolute Lymphocytes 0.9 10^3/cmm (1.2-3.4) L 06/02/25 16:59 Lymphocytes (Manual) 3 % 06/02/25 16:59 Monocytes (Manual) 0.0 % 06/02/25 16:59 Absolute Monocytes 0.0 10^3/cmm (0.1-0.6) L 06/02/25 16:59 Eosinophils (Manual) 0 % 06/02/25 16:59 Absolute Eosinophils 0.0 10^3/cmm (0.0-0.7) 06/02/25 16:59 Basophils (Manual) 0.0 % 06/02/25 16:59 Absolute Basophils 0.0 10^3/cmm (0.0-0.2) 06/02/25 16:59 Metamyelocytes 2.0 % 06/02/25 16:59 Platelet Estimate Normal (Normal) 06/02/25 16:59 Giant Platelets Trace 06/02/25 16:59 Sodium 136 mmol/L (136-145) 06/02/25 16:59 Potassium 3.9 mmol/L (3.5-5.1) 06/02/25 16:59 Chloride 97 mmol/L (98-107) L 06/02/25 16:59 Carbon Dioxide 25 mmol/L (22-29) 06/02/25 16:59 Anion Gap 17.9 (5-19) 06/02/25 16:59 BUN 36 mg/dL (8-23) H 06/02/25 16:59 Creatinine 1.4 mg/dL (0.5-0.9) H 06/02/25 16:59 GFR Calculation Not Reportable 06/02/25 16:59 Glucose 206 mg/dL (65-115) H 06/02/25 16:59 Calculated Osmolality 296 mOsm/kg (285-295) H 06/02/25 16:59 Lactic Acid 4.1 mmol/L (0.5-2.2) H* 06/02/25 16:59 Lactic Acid (Sepsis) 4.6 mmol/L (0.5-2.2) H* 06/02/25 19:28 Calcium 9.2 mg/dL (8.5-10.5) 06/02/25 16:59 Total Bilirubin 0.8 mg/dL (0.15-1.2) 06/02/25 16:59 AST 9 U/L (0-32) 06/02/25 16:59 ALT 6 U/L (0-33) 06/02/25 16:59 Alkaline Phosphatase 102 U/L (35-105) 06/02/25 16:59 NT-Pro-B Natriuret Pep 1951 pg/mL (0-450) H 06/02/25 16:59 Total Protein 7.7 g/dL (6.6-8.7) 06/02/25 16:59 Albumin 3.4 g/dL (3.5-5.2) L 06/02/25 16:59 Globulin 4.3 g/dL (1.3-4.6) 06/02/25 16:59 Procalcitonin 12.33 ng/mL (0-0.5) H 06/02/25 16:59 Influenza A (PCR) Negative (Negative) 06/02/25 18:25 Influenza Type B (PCR) Negative (Negative) 06/02/25 18:25 RSV (PCR) Negative (Negative) 06/02/25 18:25 SARS-CoV-2 (PCR) Negative (Negative) 06/02/25 18:25 EKG Data EKG 1: Interpretation: Normal sinus rhythm, normal axis, no ST segment elevation, rate 100, QTc 384 ms Discharge Plan Discharge Patient Disposition: Admitted As Inpatient Clinical Impression: Acute hypoxic respiratory failure Pneumonia Qualifiers: Pneumonia type: due to unspecified organism Laterality: bilateral Lung location: lower lobe of lung Qualified Code(s): J18.9 - Pneumonia, unspecified organism Condition: Stable Coding Level of Care Code ED In Store Representative for Chg Fwd Documented by User: Yogi Redmond DO 06/02/25 20:15 HPI - SOB/Dyspnea General: Chief Complaint: Shortness of Breath/Dyspnea Stated Complaint: SOB Related Data Home Medications ?Medication ?Instructions ?Recorded ?Confirmed acetaminophen 325 mg tablet 650 mg PO Q8H PRN Pain, Mild OR 01/12/24 01/12/24 FEVER albuterol sulfate 2.5 mg/3 mL 2.5 mg inhalation Q4H PRN COUGH 01/12/24 01/12/24 (0.083 %) solution for nebulization AND WHEEZING alendronate 70 mg tablet 70 mg PO Q7D 01/12/24 01/12/24 aspirin 81 mg tablet,delayed 81 mg PO QAM 01/12/24 01/12/24 release bisacodyl 10 mg rectal suppository 10 mg HI DAILY PRN Constipation 01/12/24 01/12/24 carvedilol 12.5 mg tablet 12.5 mg PO BID 01/12/24 01/12/24 fexofenadine 60 mg tablet 60 mg PO BID 01/12/24 01/12/24 fluticasone propionate 50 1 spray intranasal BEDTIME 01/12/24 01/12/24 mcg/actuation nasal spray,suspension guaifenesin 100 mg/5 mL oral 200 mg PO Q4H PRN Cough 01/12/24 01/12/24 liquid (Robafen) hydrochlorothiazide 25 mg tablet 25 mg PO DAILY 01/12/24 01/12/24 magnesium hydroxide 400 mg/5 mL 5 ml PO DAILY PRN Constipation 01/12/24 01/12/24 oral suspension (Milk of Magnesia) omeprazole 20 mg capsule,delayed 20 mg PO QAM 01/12/24 01/12/24 release oxycodone 20 mg tablet 20 mg PO Q6H PRN Pain, Moderate TO 01/12/24 01/12/24 SEVERE pyridoxine (vitamin B6) 50 mg 50 mg PO DAILY 01/12/24 01/12/24 tablet (Vitamin B-6) risperidone 0.25 mg tablet 0.25 mg PO BID 01/12/24 01/12/24 sennosides 8.6 mg-docusate sodium 1 tab-cap PO BID PRN Constipation 01/12/24 01/12/24 50 mg tablet (Senokot-S) sertraline 50 mg tablet 50 mg PO BEDTIME 01/12/24 01/12/24 sodium phosphates 19 gram-7 118 ml HI DAILY PRN Constipation 01/12/24 01/12/24 gram/118 mL enema (Fleet Enema) trazodone 100 mg tablet 100 mg PO BEDTIME 01/12/24 01/12/24 Previous Rx's ?Medication ?Instructions ?Recorded furosemide 20 mg tablet (Lasix) 20 mg PO DAILY #10 tabs 01/12/24 potassium chloride 10 mEq 10 meq PO DAILY #20 tabs 01/12/24 tablet,extended release Allergies Allergy/AdvReac Type Severity Reaction Status Date / Time No Known Allergies Allergy Verified 01/25/22 20:07 [facility] ED PFS: Surgical History No pertinent past surgical history Course Vital Signs: Vital signs: Vital Signs Temperature 99.6 F 06/02/25 16:57 Pulse Rate 96 06/02/25 18:30 Respiratory Rate 25 H 06/02/25 18:30 Blood Pressure 116/63 06/02/25 18:30 Pulse Oximetry 89 L 06/02/25 18:30 Oxygen Delivery Me thod Nasal Cannula 06/02/25 18:00 Oxygen Flow Rate 2 06/02/25 18:00 MDM - SOB/Dyspnea Medical Decision Making 84-year-old female that reports to the emergency room with low oxygen saturation. On workup, she has multi lobar pneumonia. Unknown if this is secondary to aspiration. She is essentially a nonhistorian. Procalcitonin level is high, WBC is 30.8 raising the question of concern for abscess/empyema, however this is not appear to be present or pleural effusion on chest x-ray. Will obtain hospitalist consultation for admission inpatient. Patient is calm, kind, and does not have any concerns at this time. She did however refuse blood cultures, and repeat lactic acid, which she is entitled to do. Patient originally seen by Ms. Prudence PA-C. I agree with her history, evaluation, and management Lab Data 06/02/25 16:59 06/02/25 16:59 Labs/Radiology: Radiology Impressions Chest X-Ray 06/02/25 17:02 IMPRESSION: Mild bibasilar opacities could represent infiltrate in the correct clinical setting. Laboratory Results WBC 30.81 10^3/uL (3.29-11.43) H* 06/02/25 16:59 RBC 4.27 10^6/uL (3.85-5.65) 06/02/25 16:59 Hgb 12.00 g/dL (11.27-16.99) 06/02/25 16:59 Hct 36.8 % (36-47) 06/02/25 16:59 MCV 86.2 fl (85-98) 06/02/25 16:59 MCH 28.1 pg (27-33) 06/02/25 16:59 MCHC 32.6 g/dL (30-55) 06/02/25 16:59 RDW 15.7 % (12.1-15.1) H 06/02/25 16:59 Plt Count 222 10^3/cmm (157-399) 06/02/25 16:59 MPV 11.2 fL (7.4-10.4) H 06/02/25 16:59 Lymph % (Auto) Not Reportable 06/02/25 16:59 Hodgeman % (Auto) Not Reportable 06/02/25 16:59 Lymph # (Auto) Not Reportable 06/02/25 16:59 [place] # (Auto) Not Reportable 06/02/25 16:59 Total Counted 100 (0-100) 06/02/25 16:59 Atypical Lymphs % 0.0 % (0-5) 06/02/25 16:59 Absolute Neutrophils 29.3 10^3/cmm (1.4-6.5) H 06/02/25 16:59 Segmented Neutrophils 78 % 06/02/25 16:59 Band Neutrophils 17.0 % 06/02/25 16:59 Absolute Lymphocytes 0.9 10^3/cmm (1.2-3.4) L 06/02/25 16:59 Lymphocytes (Manual) 3 % 06/02/25 16:59 Monocytes (Manual) 0.0 % 06/02/25 16:59 Absolute Monocytes 0.0 10^3/cmm (0.1-0.6) L 06/02/25 16:59 Eosinophils (Manual) 0 % 06/02/25 16:59 Absolute Eosinophils 0.0 10^3/cmm (0.0-0.7) 06/02/25 16:59 Basophils (Manual) 0.0 % 06/02/25 16:59 Absolute Basophils 0.0 10^3/cmm (0.0-0.2) 06/02/25 16:59 Metamyelocytes 2.0 % 06/02/25 16:59 Platelet Estimate Normal (Normal) 06/02/25 16:59 Giant Platelets Trace 06/02/25 16:59 Sodium 136 mmol/L (136-145) 06/02/25 16:59 Potassium 3.9 mmol/L (3.5-5.1) 06/02/25 16:59 Chloride 97 mmol/L (98-107) L 06/02/25 16:59 Carbon Dioxide 25 mmol/L (22-29) 06/02/25 16:59 Anion Gap 17.9 (5-19) 06/02/25 16:59 BUN 36 mg/dL (8-23) H 06/02/25 16:59 Creatinine 1.4 mg/dL (0.5-0.9) H 06/02/25 16:59 GFR Calculation Not Reportable 06/02/25 16:59 Glucose 206 mg/dL (65-115) H 06/02/25 16:59 Calculated Osmolality 296 mOsm/kg (285-295) H 06/02/25 16:59 Lactic Acid 4.1 mmol/L (0.5-2.2) H* 06/02/25 16:59 Lactic Acid (Sepsis) 4.6 mmol/L (0.5-2.2) H* 06/02/25 19:28 Calcium 9.2 mg/dL (8.5-10.5) 06/02/25 16:59 Total Bilirubin 0.8 mg/dL (0.15-1.2) 06/02/25 16:59 AST 9 U/L (0-32) 06/02/25 16:59 ALT 6 U/L (0-33) 06/02/25 16:59 Alkaline Phosphatase 102 U/L (35-105) 06/02/25 16:59 NT-Pro-B Natriuret Pep 1951 pg/mL (0-450) H 06/02/25 16:59 Total Protein 7.7 g/dL (6.6-8.7) 06/02/25 16:59 Albumin 3.4 g/dL (3.5-5.2) L 06/02/25 16:59 Globulin 4.3 g/dL (1.3-4.6) 06/02/25 16:59 Procalcitonin 12.33 ng/mL (0-0.5) H 06/02/25 16:59 Influenza A (PCR) Negative (Negative) 06/02/25 18:25 Influenza Type B (PCR) Negative (Negative) 06/02/25 18:25 RSV (PCR) Negative (Negative) 06/02/25 18:25 SARS-CoV-2 (PCR) Negative (Negative) 06/02/25 18:25 All radiology interpretation(s) finalized by discharge Discharge Plan Discharge Patient Disposition: Admitted As Inpatient Clinical Impression: Acute hypoxic respiratory failure Pneumonia Qualifiers: Pneumonia type: due to unspecified organism Laterality: bilateral Lung location: lower lobe of lung Qualified Code(s): J18.9 - Pneumonia, unspecified organism Condition: Stable Coding Level of Care Code ED In Store Representative for Rylee Burnham
[2025-06-02 17:39] LABS: Lactic Sepsis W/Reflex 4.1 mmol/L (0.5-2.2)
[2025-06-02 17:42] LABS: Slide Review Slide Review Perform; White Blood Count 30.81 10^3/uL (3.29-11.43)
[2025-06-02 17:46] LABS: Absolute Segmented Neutrophil 24.0 10/cmm (1.6-7.1); Atypical Lymphs 0.0 % (0-5); Band Neutrophils Absolute 5.2 10^3/cmm (0.0-1.2); Total Cells Counted 100 (0-100)
[2025-06-02 17:47] LABS: Giant Platelets Trace
[2025-06-02 17:48] LABS: NT Pro B Type Natriuretic Pept 1951 pg/mL (0-450); Procalcitonin 12.33 ng/mL (0-0.5)
[2025-06-02] MEDS: cefTRIAXone 2,000 mg SDV 2000 MG IVP (17:55)
[2025-06-02] MEDS: doxycycline 100 MG in sodium chloride 0.9% (plus) 100 ML IV (17:57)
[2025-06-02 18:00] VITALS: BP 111/73; PULSE 99; RESP 16; O2SAT 88
[2025-06-02 18:00] LABS: Alanine Aminotransferase 6 U/L (0-33); Albumin Level 3.4 g/dL (3.5-5.2); Alkaline Phosphatase 102 U/L (35-105); Anion Gap 17.9 (5-19); Aspartate Amino Transferase 9 U/L (0-32); Blood Urea Nitrogen 36 mg/dL (8-23); Calcium 9.2 mg/dL (8.5-10.5); Carbon Dioxide 25 mmol/L (22-29); Chloride 97 mmol/L (98-107); Creatinine Clr Calc Pharmacy 33.7834; Globulin 4.3 g/dL (1.3-4.6); Glucose 206 mg/dL (65-115); Osmolality Calculated 296 mOsm/kg (285-295); Potassium 3.9 mmol/L (3.5-5.1); Sodium 136 mmol/L (136-145); Total Protein 7.7 g/dL (6.6-8.7)
[2025-06-02 18:30] VITALS: BP 116/63; PULSE 96; RESP 25; O2SAT 89
[2025-06-02 18:35] LABS: Reflex Lactate Order REFLEX LACTIC ORDERD
[2025-06-02 19:06] LABS: Respiratory Syncytial Virus Ce NEGATIVE (Negative); SARS-CoV-2 PCR NEGATIVE (Negative)
[2025-06-02 20:09] LABS: Lactic Acid level (Lactate) 4.6 mmol/L (0.5-2.2)
--- NOTE | 2025-06-02 20:47 | PM.HP ---
Providers/Chief Complaint Admitting Physician: NILTON GILMAN---DO--- patient admitted before 12 midnight Primary Care Provider: Waldemar Randhawa DO Chief Complaint: SOB History of Present Illness Stefania Flanagan is a 84 year old female with medical history significant for heart failure and on chronic home oxygen at [facility]. Patient is a jail resident. Staff at the jail noted that the patient oxygen saturation had been in the 80s on her normal 2 L of oxygen and got concerned and decided to bring the patient to emergency room for further evaluation. At the emergency room workup were significant for multilobar pneumonia requiring more oxygen to 4 L to maintain sats in the low 90s. COVID was negative, influenza A and B-, RSV negative patient white count was noted to increase from less than a 10,000 white count at baseline to 30,000 at this presentation patient had not had diarrhea or any abdominal pain. Patient had not had any IV fluid at the time I was consulted to see the patient. Lactic acid was elevated at 4.1 and repeated another liter was increased to a 4.6. Procalcitonin was up at 12.5. I gave patient a liter of normal saline bolus. Staying cautious that patient does have history of heart failure and on diuretics at 40 mg Lasix. Patient also on carvedilol at baseline At the emergency room patient received IV antibiotics of doxycycline and ceftriaxone I will continue this as patient actually started refusing repeat lab work for procalcitonin if patient were to be on vancomycin and Zosyn that might require multiple blood drawl to optimize, patient might not follow through. Review of Systems Narrative: System review upon 10 organ reviewed was essentially unremarkable except for respiratory with hypoxemia. Medications/Allergies Home Medications ?Medication ?Instructions ?Recorded ?Confirmed ?Last Taken ?Type acetaminophen 325 mg tablet 650 mg PO Q8H PRN Pain, Mild OR 01/12/24 06/02/25 06/01/25 15:00 History FEVER albuterol sulfate 2.5 mg/3 mL 2.5 mg inhalation BID 01/12/24 06/02/25 06/02/25 12:46 History (0.083 %) solution for nebulization aspirin 81 mg tablet,delayed 81 mg PO QAM 01/12/24 06/02/25 06/02/25 08:20 History release bisacodyl 10 mg rectal suppository 10 mg W[place] DAILY PRN Constipation 01/12/24 06/02/25 Unknown History carvedilol 12.5 mg tablet 12.5 mg PO BID 01/12/24 06/02/25 06/02/25 08:20 History fluticasone propionate 50 1 spray intranasal BEDTIME 01/12/24 06/02/25 06/01/25 20:26 History mcg/actuation nasal spray,suspension guaifenesin 100 mg/5 mL oral 200 mg PO Q4H PRN Cough 01/12/24 06/02/25 Unknown History liquid (Robafen) magnesium hydroxide 400 mg/5 mL 30 ml PO DAILY PRN Constipation 01/12/24 06/02/25 05/31/25 20:52 History oral suspension (Milk of Magnesia) omeprazole 20 mg capsule,delayed 20 mg PO QAM 01/12/24 06/02/25 06/02/25 08:20 History release oxycodone 20 mg tablet 20 mg PO Q6H 01/12/24 06/02/25 06/02/25 11:11 History sennosides 8.6 mg-docusate sodium 1 tab-cap PO BID PRN Constipation 01/12/24 06/02/25 05/31/25 07:45 History 50 mg tablet (Senokot-S) sodium phosphates 19 gram-7 118 ml W[place] DAILY PRN Constipation 01/12/24 06/02/25 Unknown History gram/118 mL enema (Fleet Enema) carboxymethylcellulose 0.5 1 drp ophthalmic (eye) BID 06/02/25 06/02/25 06/02/25 08:20 History %-glycerin 0.9 % eye drops (Refresh Optive) fluticasone fur. 100 mcg-umeclid 1 inh inhalation DAILY 06/02/25 06/02/25 06/02/25 12:01 History 62.5 mcg-vilant 25 mcg inhalat.powder (Trelegy Ellipta) furosemide 40 mg tablet (Lasix) 40 mg PO BID 06/02/25 06/02/25 06/02/25 12:46 History loratadine 10 mg tablet 10 mg PO DAILY PRN allergies 06/02/25 06/02/25 Unknown History menthol 4 % topical gel (Biofreeze 1 applic topical TID PRN Pain 06/02/25 06/02/25 Unknown History (menthol)) ondansetron 4 mg disintegrating 4 mg PO Q4H PRN Nausea 06/02/25 06/02/25 Unknown History tablet polyethylene glycol 3350 17 gram 17 g PO DAILY PRN Constipation 06/02/25 06/02/25 05/08/25 07:55 History oral powder packet (Miralax) potassium chloride 10 mEq 20 meq PO BID 06/02/25 06/02/25 06/02/25 08:20 History tablet,extended release sertraline 100 mg tablet 100 mg PO DAILY 06/02/25 06/02/25 06/02/25 08:20 History trazodone 50 mg tablet 50 mg PO BEDTIME PRN Insomnia 06/02/25 06/02/25 06/01/25 20:26 History Allergies Allergy/AdvReac Type Severity Reaction Status Date / Time No Known Allergies Allergy Verified 01/25/22 20:07 PFSH Acute PFSH: Surgical History No pertinent past surgical history Vitals/I&O/Wt Last Vital Signs Temp 99.6 F 06/02/25 16:57 Pulse 96 06/02/25 18:30 Resp 25 H 06/02/25 18:30 BP 116/63 06/02/25 18:30 Pulse Ox 89 L 06/02/25 18:30 O2 Del Method Nasal Cannula 06/02/25 18:00 O2 Flow Rate 2 06/02/25 18:00 Weight last 48 hrs Weight 80.286 kg Physical Exam Narrative: Generally patient is fully awake and alert verbalized that she does not feel right and that she does not know what is going on. Patient does have history of dementia that she is very vocal HEENT normocephalic/atraumatic neck neck is supple cardiovascular heart rate is regular lungs are with coarse breath sound. Abdomen soft nontender nondistended unremarkable extremities are intact no edema has good pulses neurology no focality. Lab studies chemistry essentially unremarkable CBC were significant for marked elevation of white count at 30,000 with much increased inflammatory markers with lactic acid elevation procalcitonin elevation. Data 06/02/25 16:59 06/02/25 16:59 A&P Assessment and plan 1. Pneumonia: 2. Acute hypoxic respiratory failure: 3. Acute renal failure: 4. Dehydration: 5. Leukocytosis: Plan: #1 Multi lobar pneumonia with hypoxemia - Patient resident of jail need an inpatient admission - IV antibiotics initiated with ceftriaxone 2 g IV twice daily - Will add doxycycline for good gram-positive coverage 100 mg IV every 12 - Nebulizing treatment in place with DuoNeb every 4 hours scheduled for respiratory to assist and treat - Patient is negative for COVID, RSV, influenza A and B - Patient is appropriate for MedSurg placement with heart monitor - A bolus of 1 L normal saline given #2 Acute renal failure - Creatinine had risen from a baseline of the 0.8 to 1.4 - Continue gentle hydration at 100 mL/h follow urine and initial 1 L normal saline bolus #3 Dehydration - Continue IV hydration gently and monitor #4 Patient is with pneumonia with sepsis - Patient with much leukocytosis and hypoxemia with much inflammatory markers elevation of procalcitonin at 12 and lactic acid persistently elevated - Follow inflammatory markers #5 GI and DVT prophylaxis in place PDMP PDMP Reviewed: Last Reviewed 06/03/25 03:33 by Nilton Gilman MD Attestations Medical Necessity Statement*: System review upon 10 organ reviewed were significant for respiratory failure due to multilobar pneumonia in a 84-year-old female meets inpatient criteria for optimization of care for at least 2 midnights. Coding Level of Care Code 83971 Diagnoses Pneumonia J18.9 Acute hypoxic respiratory failure J96.01 Acute renal failure N17.9 Dehydration E86.0 Leukocytosis D72.829 Time Spent (min) 60
[2025-06-02 21:25] VITALS: BP 99/81; PULSE 92; RESP 20; O2SAT 91
[2025-06-02 22:02] VITALS: BMI 26.2
[2025-06-03] VITALS (13 sets, daily range): BP systolic 90–125; BP diastolic 56–72; PULSE 69–87; RESP 6–18; TEMP 36.3–37.1; O2SAT 91–94
[2025-06-03] MEDS: pantoprazole 40 mg SDV IVP (00:43)
[2025-06-03] MEDS: cefTRIAXone 2,000 mg SDV 2000 MG IVP ×2 (05:14→17:00)
[2025-06-03] MEDS: doxycycline 100 MG in sodium chloride 0.9% (plus) 100 ML IV ×2 (05:14→17:00)
[2025-06-03] MEDS: morphine 4 mg/mL SDV 1 mL 2 MG IVP (05:19)
[2025-06-03 05:58] LABS: Alanine Aminotransferase 6 U/L (0-33); Albumin Level 2.7 g/dL (3.5-5.2); Alkaline Phosphatase 166 U/L (35-105); Anion Gap 13.3 (5-19); Aspartate Amino Transferase 11 U/L (0-32); Blood Urea Nitrogen 34 mg/dL (8-23); Calcium 8.3 mg/dL (8.5-10.5); Carbon Dioxide 27 mmol/L (22-29); Chloride 104 mmol/L (98-107); Globulin 3.5 g/dL (1.3-4.6); Glucose 129 mg/dL (65-115); Magnesium 2.1 mg/dL (1.7-2.3); Osmolality Calculated 301 mOsm/kg (285-295); Potassium 3.3 mmol/L (3.5-5.1); Sodium 141 mmol/L (136-145); Total Protein 6.2 g/dL (6.6-8.7)
[2025-06-03 06:19] LABS: Creatinine Clr Calc Pharmacy 41.9466
[2025-06-03] MEDS: potassium phosphate (mMol PO4) 30 MMOL in sodium chloride 0.9% (100 ml) 100 ML 25 MMOL IV (10:37)
[2025-06-03] MEDS: sodium chlor 0.9% + KCl 20 mEq 20 MEQ/1,000 ML BAG 100 MEQ IV ×2 (11:38→21:31)
--- NOTE | 2025-06-03 12:02 | PC.CHAP ---
Pastoral Care Encounter/Spiritual Assessment Type of Contact [] Declined sketch maker visit [] Patient/Family/Request visit [] Outpatient visit [] Follow-up visit [] Physician referral [] Code/Alert [] Routine visit [] Staff referral [] Actively dying [] Patient sleeping [] Family support [] [] Out of room [] Palliative care [] [X] Receiving care in room [] Pre-surgical visit [] Trauma [] Long length of stay [] ICU visit [] Other: Relational/Emotional Strength [] Patient feels connected with others/family/visitors/staff [] Distress [] Loneliness/isolation [] Abandonment Spirituality of Patient [] Person of Debra [] Attends Sikhism of their Debra [] Believes in Prayer [] Reads Bible or Gnosticism materials [] There are Spiritual issues to be addressed Customer Contact Specialist Interventions [] Prayer [] Active listening [] Non-anxious presence [] Spiritual/emotional support [] Crisis/trauma care [] Spiritual counseling [] Bereavement support [] Provided bereavement packet [] Provided Bible/devotional materials [] Provided toy/stuffed animal, coloring book to patient or family member [] Provided Communion [] Anointing/Wilson [] Salvation [] Completed spiritual assessment [] Other: Impact on Illness or Injury [] Angry [] Fearful [] Anxious [] Often cries [] Exhaustion [] Unable to work [] Unable to attend mosque [] Unable to walk/stand [] Unable to read [] Unable to drive [] Unable to eat/drink [] Unable to sleep [] Unable to be with family [] Patient intubated [] Other: Summary Time spent with patient
[2025-06-03 14:29] LABS: Lactate (Lactic Acid level) 0.9 mmol/L (0.5-2.2)
[2025-06-03 14:31] LABS: Anion Gap 14.3 (5-19); Blood Urea Nitrogen 29 mg/dL (8-23); Calcium 8.0 mg/dL (8.5-10.5); Carbon Dioxide 24 mmol/L (22-29); Chloride 104 mmol/L (98-107); Creatinine Clr Calc Pharmacy 51.1716; Glucose 132 mg/dL (65-115); Osmolality Calculated 296 mOsm/kg (285-295); Potassium 3.3 mmol/L (3.5-5.1); Sodium 139 mmol/L (136-145)
[2025-06-03] MEDS: polyethylene glycol 3350 Pkt 17 gm PO (16:53)
[2025-06-03] MEDS: oxyCODONE 5 mg IR Tab/Cap 10 MG PO ×2 (16:53→23:13)
--- NOTE | 2025-06-03 16:59 | P.PN_ITS ---
Subjective 2 Subjective: 84-year-old female admitted wi th pneumonia last night. Patient tells me that she is from a longterm in [place] and was brought here by ambulance. She states that she is 84 but her sister who is 75 was here earlier and could give more history. Patient denies coughing fever shortness of breath or chest pain. ER indicates that she was from [facility] chronically on 2 L/min with some memory ambulatory issues hypoxemic down to 80% on her usual oxygen. Arrival here temperature was 99.6 O2 sat 88% on 2 L. She asked me when she can go home. Notably she required 4 L/min for sats in the low 90s viral panel was negative procalcitonin 12.5. Lactic acid 4.1 then 4.6 and then this morning 0.9 Vitals/I&O/Wt Last Vital Signs Temp 98.0 F 06/03/25 15:41 Pulse 69 06/03/25 15:41 Resp 18 06/03/25 16:53 BP 116/66 06/03/25 15:41 Pulse Ox 93 06/03/25 16:53 O2 Del Method Nasal Cannula 06/03/25 15:41 O2 Flow Rate 2 06/03/25 11:29 06/03/25 06/03/25 06/03/25 06:59 14:59 22:59 Intake Total 580 / 1680 2620 / 2620 Output Total 300 / 300 300 / 300 Balance 280 / 1380 2320 / 2320 Weight last 48 hrs Weight 75.75 kg Weight 76.067 kg Weight 80.286 kg Physical Exam 2 Narrative: General well-developed well-nourished female in no acute cardiopulmonary stress CV regular rate and rhythm Lungs crackles in the bases Abdomen positive bowel tones soft nontender Calves no tenderness cords pretibial edema Mentation she is disoriented to where she lives but does know her age Data 06/02/25 16:59 06/03/25 14:04 A&P Assessment and plan 1. Pneumonia: Continue with Rocephin and doxycycline continue with nebulizers. 2. Acute hypoxic respiratory failure: Wean O2 as tolerated. Once fever is improved and she is improved she can go back home on oral antibiotics to halfway facility 3. Acute renal failure: Creatinine was up to 1.4 but normalized with fluid resuscitation to 0.9. Lactic acid also normalized to 0.9 4. Dehydration: Continue with IV fluids replace potassium and phosphorus 5. Leukocytosis: Severe to 30,000 and attributable to pneumonia follow-up labs in the morning 6. Hypophosphatemia: Potassium phosphate 30 mmol ordered PDMP PDMP Reviewed: Not Reviewed Attestations 2 Medical Necessity Statement*: Patient remains in hospital for IV antibiotics and will require 1 more midnight Coding Level of Care Code 00435 Diagnoses Pneumonia J18.9 Laterality: bilateral Lung location: lower lobe of lung Pneumonia type: due to unspecified organism Acute hypoxic respiratory failure J96.01 Acute renal failure N17.9 Dehydration E86.0 Leukocytosis D72.829 Hypophosphatemia E83.39 Time Spent (min) 35
[2025-06-03] MEDS: heparin 5,000 unit/mL INJ 1 mL 5000 UNIT SUBCUT (21:31)
[2025-06-04] VITALS (11 sets, daily range): BP systolic 117–163; BP diastolic 69–94; PULSE 68–84; RESP 16–24; TEMP 36.6–37; O2SAT 92–98
[2025-06-04] MEDS: doxycycline 100 MG in sodium chloride 0.9% (plus) 100 ML IV ×2 (05:08→17:56)
[2025-06-04] MEDS: sodium chlor 0.9% + KCl 20 mEq 20 MEQ/1,000 ML BAG 100 MEQ IV (05:18)
[2025-06-04 06:10] LABS: Hematocrit 33.5 % (36-47); Hemoglobin 10.40 g/dL (11.27-16.99); Mean Corpuscular HGB Conc 31.0 g/dL (30-55); Mean Corpuscular Hemoglobin 27.3 pg (27-33); Mean Corpuscular Volume 87.9 fl (85-98); Nucleated Red Blood Cells % 0 %; Platelet Count 207 10^3/cmm (157-399); Red Blood Count 3.81 10^6/uL (3.85-5.65); White Blood Count 16.26 10^3/uL (3.29-11.43)
[2025-06-04] MEDS: oxyCODONE 5 mg IR Tab/Cap 10 MG PO ×3 (10:20→20:20)
--- NOTE | 2025-06-04 12:55 | PM.PN ---
Subjective Subjective: 84-year-old female admitted with pneumonia 04/01/2025. Patient tells me that she is from a jail here in [facility]. She tells me that her sister who is 75 is her only next of kin and is too old to take care of her. Patient admits that she was confused yesterday. She moved from [facility] where she grew up to be close to her sister here in [place]. That sister was 12 years older than her and like a mother. Patient met her who was in [place] and they moved their 1961. owned a [employer]. Patient is now she had 1 daughter who of fentanyl drug overdose 2 years ago. Patient states she quit smoking 3 to 4 years ago and is on oxygen 2 L/min at the jail. Patient tells me that she uses a walker or wheelchair to get around. 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 This morning patient's lungs sounded wet and IV fluids were stopped. Subsequent that she had some air hunger and anxiety treated with 1 dose of lorazepam 0.5 mg p.o. Vitals/I&O/Wt Last Vital Signs Temp 98.6 F 06/04/25 11:32 Pulse 77 06/04/25 11:32 Resp 20 H 06/04/25 11:32 BP 163/90 06/04/25 11:32 Pulse Ox 97 06/04/25 11:32 O2 Del Method Nasal Cannula 06/04/25 11:32 O2 Flow Rate 2 06/04/25 08:00 06/03/25 06/04/25 06/04/25 22:59 06:59 14:59 Intake Total 1148.333 / 3768.333 878.333 / 4646.666 330 / 330 Output Total 450 / 750 200 / 950 400 / 400 Balance 698.333 / 3018.333 678.333 / 3696.666 -70 / -70 Weight last 48 hrs Weight 75.75 kg Weight 75.75 kg Weight 76.067 kg Weight 80.286 kg Physical Exam Narrative: General well-developed well-nourished female in no acute cardiopulmonary stress CV regular rate and rhythm Lungs crackles in the bases air movement is good Abdomen positive bowel tones soft nontender Calves no tenderness cords pretibial edema Mentation she is alert oriented to person place date today and knew it was the Data 06/04/25 05:11 06/03/25 14:04 A&P Assessment and plan 1. Pneumonia: Continue with Rocephin and doxycycline continue with nebulizers. White count has decreased from 30,000-14,000. 2. Acute hypoxic respiratory failure: Patient is on 2 L/min oxygen now. This is similar to what she is on at home but she is still with crackles in the bases and elevated white count. Increase activity and incentive spirometer. Viral respiratory studies were negative 3. Dehydration: Resolved lungs sound crackles in the bases with known pneumonia. Stop IV fluids 4. Leukocytosis: Improved repeat CBC in the morning 5. Hypophosphatemia: Potassium phosphate 30 mmol ordered for phosphorus 1.7 today down from 1.8 yesterday despite 30 mmol per K-Phos given Plan: Start physical therapy increase activity 8 and 7 spirometer potential discharge tomorrow PDMP PDMP Reviewed: Not Reviewed Attestations Medical Necessity Statement*: Patient everton in the hospital for physical therapy evaluation mobility incentive spirometer and follow-up CBC and phosphorus replacement will require additional midnight in the hospital Coding Level of Care Code 12764 Diagnoses Pneumonia J18.9 Laterality: bilateral Lung location: lower lobe of lung Pneumonia type: due to unspecified organism Acute hypoxic respiratory failure J96.01 Dehydration E86.0 Leukocytosis D72.829 Hypophosphatemia E83.39 Time Spent (min) 35
[2025-06-04] MEDS: potassium phosphate (mMol PO4) 30 MMOL in sodium chloride 0.9% (100 ml) 100 ML 25 MMOL IV (12:59)
[2025-06-04] MEDS: cefTRIAXone 2,000 mg SDV 2000 MG IVP (16:15)
[2025-06-04] MEDS: LORazepam 1 MG/0.5 ML injection 0.5 MG IVP (23:38)
[2025-06-05] VITALS (13 sets, daily range): BP systolic 146–180; BP diastolic 76–98; PULSE 81–92; RESP 16–26; TEMP 36.4–36.9; O2SAT 3–97
[2025-06-05 05:02] LABS: Hematocrit 32.8 % (36-47); Hemoglobin 10.30 g/dL (11.27-16.99); Mean Corpuscular HGB Conc 31.4 g/dL (30-55); Mean Corpuscular Hemoglobin 27.8 pg (27-33); Mean Corpuscular Volume 88.4 fl (85-98); Nucleated Red Blood Cells % 0 %; Platelet Count 221 10^3/cmm (157-399); Red Blood Count 3.71 10^6/uL (3.85-5.65); White Blood Count 13.93 10^3/uL (3.29-11.43)
[2025-06-05 05:41] LABS: Anion Gap 16.2 (5-19); Blood Urea Nitrogen 12 mg/dL (8-23); Calcium 8.5 mg/dL (8.5-10.5); Carbon Dioxide 23 mmol/L (22-29); Chloride 105 mmol/L (98-107); Creatinine Clr Calc Pharmacy 57.8631; Glucose 105 mg/dL (65-115); Magnesium 2.1 mg/dL (1.7-2.3); Osmolality Calculated 292 mOsm/kg (285-295); Potassium 3.2 mmol/L (3.5-5.1); Sodium 141 mmol/L (136-145)
[2025-06-05] MEDS: oxyCODONE 5 mg IR Tab/Cap 10 MG PO ×3 (06:09→21:43)
[2025-06-05] MEDS: doxycycline 100 MG in sodium chloride 0.9% (plus) 100 ML IV ×2 (06:10→17:06)
--- NOTE | 2025-06-05 11:21 | PC.SOCIAL ---
*IMM* Patient received copy of IMM, dated, initialled and placed in chart.
[2025-06-05 11:28] LABS: Estmated Average Glucose 128; Hemoglobin A1C 6.1 % (4.0-6.0)
[2025-06-05 11:46] LABS: Procalcitonin 1.94 ng/mL (0-0.5); Thyroid Stimulating Hormone 0.34 uIU/mL (0.27-4.20); Vitamin B12 309 pg/mL (232-1245)
[2025-06-05] MEDS: potassium phosphate (mMol PO4) 30 MMOL in sodium chloride 0.9% (100 ml) 100 ML 25 MMOL IV (11:54)
[2025-06-05 11:56] LABS: Iron 24 ug/dL (37-145); Total Iron Binding Capacity 180 mcg/dl; Unsaturated Iron Binding 156 ug/dL (112-347)
--- NOTE | 2025-06-05 12:32 | PC.OT ---
Pt declines OT evaluation and services and states that it is a waste of time and money.
--- NOTE | 2025-06-05 14:32 | P.PN_ITS ---
Subjective 2 Subjective: Hospital course, labs appreciated. Patient laying comfortably in bed. States feeling better. On 3 L of oxygen supplementation. Denies any nausea, vomiting, headache. Did have episode of confusion as per nursing staff overnight. Vitals/I&O/Wt Last Vital Signs Temp 97.9 F 06/05/25 11:08 Pulse 86 06/05/25 12:18 Resp 16 06/05/25 12:57 BP 159/93 06/05/25 11:08 Pulse Ox 96 06/05/25 12:18 O2 Del Method Nasal Cannula 06/05/25 12:18 O2 Flow Rate 3 06/05/25 12:18 06/04/25 06/05/25 06/05/25 22:59 06:59 14:59 Intake Total 360 / 820 345 / 345 Output Total 300 / 300 Balance 360 / 420 45 / 45 Weight last 48 hrs Weight 76.612 kg Weight 75.75 kg Physical Exam 2 Narrative: General well-developed well-nourished female in no acute cardiopulmonary stress CV regular rate and rhythm Lungs crackles in the bases air movement is good Abdomen positive bowel tones soft nontender Calves no tenderness cords pretibial edema Mentation she is alert oriented to person place date today and knew it was the 28th Data 06/05/25 04:50 06/05/25 04:50 A&P Assessment and plan 1. Pneumonia: Concern for community-acquired pneumonia. Cannot rule out aspiration pneumonia. Awaiting speech evaluation. Continue with IV ceftriaxone and doxycycline for now. Did reduce dose of Rocephin to 1 g daily. Check sputum culture, MRSA swab. If MRSA swab positive will add vancomycin. Oxygen supplementation keeping saturation over 90%. 2. Acute hypoxic respiratory failure: Chronically on 2 L. Currently on 3. Oxygen supplementation and saturation over 90%. Respiratory viral panel negative. DuoNeb every 6 hour. Pulmicort twice daily 3. Dehydration: Resolved. 4. Leukocytosis: Improved repeat CBC in the morning 5. Hypophosphatemia: Repleted yesterday. Persistently has low phosphorus level. Potassium phosphate one-time. Associated with hypokalemia Plan: Continue other chronic medication including aspirin, Zoloft, trazodone. Start on melatonin nightly. Full code Cardiac diet Famotidine for PUD prophylaxis Heparin for DVT prophylaxis Discharge plan: Plan for discharge to SNF in next 24 to 48 hours naproxen supplementation remained stable. Awaiting physical therapy evaluation. PDMP PDMP Reviewed: Not Reviewed Attestations 2 Medical Necessity Statement*: Requested hospitalization for management of hypoxia in setting of community- acquired pneumonia while aspiration is ruled out Diagnoses Pneumonia J18.9 Laterality: bilateral Lung location: lower lobe of lung Pneumonia type: due to unspecified organism Acute hypoxic respiratory failure J96.01 Dehydration E86.0 Leukocytosis D72.829 Hypophosphatemia E83.39
[2025-06-05] MEDS: cefTRIAXone 1,000 mg SDV 1000 MG IVP (16:55)
[2025-06-05 20:11] LABS: MRSA PCR OZH (swab) MRSA Detected (Not Detecte)
[2025-06-06] VITALS (7 sets, daily range): BP systolic 158–171; BP diastolic 91–99; PULSE 75–91; RESP 18–20; TEMP 36.8; O2SAT 93–97
[2025-06-06] MEDS: oxyCODONE 5 mg IR Tab/Cap 10 MG PO ×2 (03:43→11:20)
[2025-06-06 05:16] LABS: Hematocrit 32.4 % (36-47); Hemoglobin 10.70 g/dL (11.27-16.99); Mean Corpuscular HGB Conc 33.0 g/dL (30-55); Mean Corpuscular Hemoglobin 28.2 pg (27-33); Mean Corpuscular Volume 85.5 fl (85-98); Nucleated Red Blood Cells % 0 %; Platelet Count 265 10^3/cmm (157-399); Red Blood Count 3.79 10^6/uL (3.85-5.65); White Blood Count 15.06 10^3/uL (3.29-11.43)
--- NOTE | 2025-06-06 05:35 | PC.NURSE ---
Pt refused melatonin and heparin at nighttime meds and mucinex and aspirin at morning meds. Dr. Melendez notified and physician notifications put in.
--- NOTE | 2025-06-06 05:38 | PC.NURSE ---
Pt positive for MRSA. Dr. Melendez notified and physician notification and critical lab put in.
[2025-06-06 05:44] LABS: Alanine Aminotransferase 15 U/L (0-33); Albumin Level 2.8 g/dL (3.5-5.2); Alkaline Phosphatase 87 U/L (35-105); Anion Gap 15.8 (5-19); Aspartate Amino Transferase 25 U/L (0-32); Blood Urea Nitrogen 8 mg/dL (8-23); Calcium 8.7 mg/dL (8.5-10.5); Carbon Dioxide 23 mmol/L (22-29); Chloride 104 mmol/L (98-107); Creatinine Clr Calc Pharmacy 57.8785; Globulin 3.7 g/dL (1.3-4.6); Glucose 127 mg/dL (65-115); Osmolality Calculated 288 mOsm/kg (285-295); Potassium 3.8 mmol/L (3.5-5.1); Sodium 139 mmol/L (136-145); Total Protein 6.5 g/dL (6.6-8.7)
[2025-06-06 05:45] LABS: Cholesterol 104 mg/dL (0-200); HDL Cholesterol 24 mg/dL (60-100); Magnesium 1.9 mg/dL (1.7-2.3); Triglycerides 100 mg/dL (0-150); VLDL Cholestrol Calculation 20 mg/dL (0-30)
--- NOTE | 2025-06-06 08:51 | P.DS_ITS ---
Discharge Providers Date of Admission: 06/02/25 20:13 Date of Discharge: June 06, 2025 Attending Provider at Admission: Briseida Mahmood MD Attending Provider at Discharge: Oli Welsh MD Primary Care Provider: Waldemar Randhawa DO Diagnoses at Discharge Discharge Diagnosis 1. Pneumonia: 2. Acute hypoxic respiratory failure: 3. Dehydration: 4. Leukocytosis: 5. Hypophosphatemia: Reason for Visit Reason for Visit: SOB Brief History: Stefania Flanagan is a 84 year old female with medical history significant for heart failure and on chronic home oxygen at 2 L at the detention. Patient is a detention resident. Staff at the detention noted that the patient oxygen saturation had been in the 80s on her normal 2 L of oxygen and got concerned and decided to bring the patient to emergency room for further evaluation. At the emergency room workup were significant for multilobar pneumonia requiring more oxygen to 4 L to maintain sats in the low 90s. COVID was negative, influenza A and B-, RSV negative patient white count was noted to increase from less than a 10,000 white count at baseline to 30,000 at this presentation patient had not had diarrhea or any abdominal pain. Patient had not had any IV fluid at the time I was consulted to see the patient. Lactic acid was elevated at 4.1 and repeated another liter was increased to a 4.6. Procalcitonin was up at 12.5. I gave patient a liter of normal saline bolus. Staying cautious that patient does have history of heart failure and on diuretics at 40 mg Lasix. Patient also on carvedilol at baseline At the emergency room patient received IV antibiotics of doxycycline and ceftriaxone I will continue this as patient actually started refusing repeat lab work for procalcitonin if patient were to be on vancomycin and Zosyn that might require multiple blood drawl to optimize, patient might not follow through. Hospital Course Hospital Course She was admitted for Acute on chronic hypoxia in setting of CAP. She was treated with broad spectrum ABx to which she responded well and is back to baseline mentation and oxygen requirements. Aspiration was ruled out with Speech evaluation. She is being d/brook back to SNF on oral linezolid and levoflox for next 1 week. Physical Exam Narrative: General well-developed well-nourished female in no acute cardiopulmonary stress CV regular rate and rhythm Lungs crackles in the bases air movement is good Abdomen positive bowel tones soft nontender Calves no tenderness cords pretibial edema Mentation she is alert oriented to person place date today and knew it was the 28th Discharge Data Studies Completed and Pending Completed Studies During Hospitalization Category Date Time Status XR chest 1V portable [id number] Stat Exams 06/02/25 17:02 Completed Pending at discharge Category Date Time Status MAG [Magnesium] AM LABS Lab 06/07/25 04:00 Ordered MAG [Magnesium] AM LABS Lab 06/08/25 04:00 Ordered Sputum Culture and Gram Stain Stat Lab 06/05/25 14:32 Uncollected Radiology Impressions Chest X-Ray 06/02/25 17:02 IMPRESSION: Mild bibasilar opacities could represent infiltrate in the correct clinical setting. Laboratory Results WBC 15.06 10^3/uL (3.29-11.43) H 06/06/25 04:35 RBC 3.79 10^6/uL (3.85-5.65) L 06/06/25 04:35 Hgb 10.70 g/dL (11.27-16.99) L 06/06/25 04:35 Hct 32.4 % (36-47) L 06/06/25 04:35 MCV 85.5 fl (85-98) 06/06/25 04:35 MCH 28.2 pg (27-33) 06/06/25 04:35 MCHC 33.0 g/dL (30-55) D 06/06/25 04:35 RDW 15.2 % (12.1-15.1) H 06/06/25 04:35 Plt Count 265 10^3/cmm (157-399) 06/06/25 04:35 MPV 10.4 fL (7.4-10.4) 06/06/25 04:35 Neut % (Auto) 74.0 % 06/06/25 04:35 Lymph % (Auto) 12.2 % 06/06/25 04:35 [place] % (Auto) 10.3 % 06/06/25 04:35 Eos % (Auto) 1.4 % 06/06/25 04:35 Baso % (Auto) 0.3 % 06/06/25 04:35 Neut # (Auto) 11.15 10^3/uL (1.8-7.7) H 06/06/25 04:35 Lymph # (Auto) 1.8 10^3/uL (0.8-4.8) 06/06/25 04:35 [place] # (Auto) 1.6 10^3/uL (0.2-0.9) H 06/06/25 04:35 Eos # (Auto) 0.2 10^3/uL (0.0-0.8) 06/06/25 04:35 Baso # (Auto) 0.1 10^3/uL (0.0-0.1) 06/06/25 04:35 Nucleated RBC % (auto) 0 % 06/06/25 04:35 Total Counted 100 (0-100) 06/02/25 16:59 Atypical Lymphs % 0.0 % (0-5) 06/02/25 16:59 Absolute Neutrophils 29.3 10^3/cmm (1.4-6.5) H 06/02/25 16:59 Segmented Neutrophils 78 % 06/02/25 16:59 Band Neutrophils 17.0 % 06/02/25 16:59 Absolute Lymphocytes 0.9 10^3/cmm (1.2-3.4) L 06/02/25 16:59 Lymphocytes (Manual) 3 % 06/02/25 16:59 Monocytes (Manual) 0.0 % 06/02/25 16:59 Absolute Monocytes 0.0 10^3/cmm (0.1-0.6) L 06/02/25 16:59 Eosinophils (Manual) 0 % 06/02/25 16:59 Absolute Eosinophils 0.0 10^3/cmm (0.0-0.7) 06/02/25 16:59 Basophils (Manual) 0.0 % 06/02/25 16:59 Absolute Basophils 0.0 10^3/cmm (0.0-0.2) 06/02/25 16:59 Metamyelocytes 2.0 % 06/02/25 16:59 Nucleated RBCs # 0.0 /100WBC 06/06/25 04:35 Platelet Estimate Normal (Normal) 06/02/25 16:59 Giant Platelets Trace 06/02/25 16:59 Sodium 139 mmol/L (136-145) 06/06/25 04:35 Potassium 3.8 mmol/L (3.5-5.1) 06/06/25 04:35 Chloride 104 mmol/L (98-107) 06/06/25 04:35 Carbon Dioxide 23 mmol/L (22-29) 06/06/25 04:35 Anion Gap 15.8 (5-19) 06/06/25 04:35 BUN 8 mg/dL (8-23) 06/06/25 04:35 Creatinine 0.6 mg/dL (0.5-0.9) 06/06/25 04:35 GFR Calculation Not Reportable 06/06/25 04:35 Glucose 127 mg/dL (65-115) H 06/06/25 04:35 Estimat Average Glucose 128 06/05/25 04:50 Hemoglobin A1c 6.1 % (4.0-6.0) H 06/05/25 04:50 Calculated Osmolality 288 mOsm/kg (285-295) 06/06/25 04:35 Lactic Acid 4.1 mmol/L (0.5-2.2) H* 06/02/25 16:59 Lactic Acid (Sepsis) 4.6 mmol/L (0.5-2.2) H* 06/02/25 19:28 Lactate 0.9 mmol/L (0.5-2.2) 06/03/25 14:04 Calcium 8.7 mg/dL (8.5-10.5) 06/06/25 04:35 Phosphorus 2.0 mg/dL (2.5-4.5) L 06/05/25 04:50 Magnesium 1.9 mg/dL (1.7-2.3) 06/06/25 04:35 Iron 24 ug/dL (37-145) L 06/05/25 04:50 TIBC 180 mcg/dl 06/05/25 04:50 % Saturation 13.3 % (20-50) L 06/05/25 04:50 Unsat Iron Binding 156 ug/dL (112-347) 06/05/25 04:50 Total Bilirubin 0.5 mg/dL (0.15-1.2) 06/06/25 04:35 AST 25 U/L (0-32) 06/06/25 04:35 ALT 15 U/L (0-33) 06/06/25 04:35 Alkaline Phosphatase 87 U/L (35-105) 06/06/25 04:35 NT-Pro-B Natriuret Pep 1951 pg/mL (0-450) H 06/02/25 16:59 Total Protein 6.5 g/dL (6.6-8.7) L 06/06/25 04:35 Albumin 2.8 g/dL (3.5-5.2) L 06/06/25 04:35 Globulin 3.7 g/dL (1.3-4.6) 06/06/25 04:35 Triglycerides 100 mg/dL (0-150) 06/06/25 04:35 Cholesterol 104 mg/dL (0-200) 06/06/25 04:35 LDL Cholesterol, Calc 60 mg/dL (50-129) 06/06/25 04:35 Total VLDL Cholesterol 20 mg/dL (0-30) 06/06/25 04:35 HDL Cholesterol 24 mg/dL (60-100) L 06/06/25 04:35 Cholesterol/HDL Ratio 4.33 mg/dL (0.0-4.40) 06/06/25 04:35 Vitamin B12 309 pg/mL (232-1245) 06/05/25 04:50 Folate 4.9 ng/mL (4.8-37.3) 06/06/25 04:35 Procalcitonin 1.94 ng/mL (0-0.5) H 06/05/25 04:50 TSH 0.34 uIU/mL (0.27-4.20) 06/05/25 04:50 Nasal MRSA (PCR) Mrsa detected (Not Detecte) A 06/05/25 18:40 Influenza A (PCR) Negative (Negative) 06/02/25 18:25 Influenza Type B (PCR) Negative (Negative) 06/02/25 18:25 RSV (PCR) Negative (Negative) 06/02/25 18:25 SARS-CoV-2 (PCR) Negative (Negative) 06/02/25 18:25 Vitals Last Vital Signs Temp 98.2 F 06/06/25 07:51 Pulse 91 06/06/25 08:21 Resp 18 06/06/25 08:21 BP 171/99 06/06/25 07:51 Pulse Ox 93 06/06/25 08:21 O2 Del Method Room Air 06/06/25 08:21 O2 Flow Rate 3 06/05/25 23:42 Discharge Plan Discharge Patient Disposition: Xfer [facility] Condition: Stable Prescriptions: New linezolid 600 mg Tablet 600 mg PO Q12H 7 Days Qty: 14 0RF levofloxacin 750 mg tablet 750 mg PO Q24H 7 Days Qty: 7 0RF Continued carvedilol 12.5 mg tablet 12.5 mg PO BID albuterol sulfate 2.5 mg /3 mL (0.083 %) solution for nebulization 2.5 mg inhalation BID omeprazole 20 mg capsule,delayed release(DR/EC) 20 mg PO QAM fluticasone propionate 50 mcg/actuation spray,suspension 1 spray INTRANASAL BEDTIME oxycodone 20 mg tablet 20 mg PO Q6H acetaminophen 325 mg Tablet 650 mg PO Q8H PRN (Reason: Pain, Mild OR FEVER) sennosides-docusate sodium [Senokot-S] 8.6-50 mg Tablet 1 tab-cap PO BID PRN (Reason: Constipation) aspirin 81 mg Tablet,Delayed Release (Dr/Ec) 81 mg PO QAM guaifenesin [Robafen] 100 mg/5 mL Liquid 200 mg PO Q4H PRN (Reason: Cough) magnesium hydroxide [Milk of Magnesia] 400 mg/5 mL Suspension 30 ml PO DAILY PRN (Reason: Constipation) bisacodyl 10 mg Suppository 10 mg NV DAILY PRN (Reason: Constipation) Fleet Enema 19-7 gram/118 mL Enema 118 ml NV DAILY PRN (Reason: Constipation) furosemide [Lasix] 40 mg Tablet 40 mg PO BID trazodone 50 mg Tablet 50 mg PO BEDTIME PRN (Reason: Insomnia) polyethylene glycol 3350 [Miralax] 17 gram Powder In Packet 17 g PO DAILY PRN (Reason: Constipation) sertraline 100 mg Tablet 100 mg PO DAILY ondansetron 4 mg Tablet,Disintegrating 4 mg PO Q4H PRN (Reason: Nausea) loratadine 10 mg Tablet 10 mg PO DAILY PRN (Reason: allergies) Refresh Optive 0.5-0.9 % Drops 1 drp OPHTHALMIC (EYE) BID Rx Instructions: BOTH EYES Biofreeze (menthol) 4 % Gel 1 applic TOPICAL TID PRN (Reason: Pain) Trelegy Ellipta 100-62.5-25 mcg Blister With Device 1 inh INHALATION DAILY potassium chloride 10 mEq tablet extended release 20 meq PO BID Discharge Order = DC NOW: Discharge Order (Routine); Ordered 06/06/25 Ordered By: Oli Welsh Referrals: Waldemar Randhawa DO [Primary Care Provider, Internal Medicine] Patient Instructions: Opioid Safety, Patient Portal & Kaitlin Instructions Activity Restrictions/Additional Instructions: Take antibiotics with linezolid and Levaquin for next 7 days. Linezolid twice daily and Levaquin once daily. Lasix has been changed to as needed for weight gain of more than 5 pounds. Oxygen supplementation keeping saturation over 88% Discharge Attestations Time Spent in Discharge Care*: greater than 30 min Specific Discharge Activities: educating patient, discussing with pcp/other providers, discussing with continuous pillowcase cutter/social workers/dc planners, documenting/other paperwork and evaluating patient/reviewing data Status at Discharge: Cognitive status at discharge: mildly impaired cognition , Behavioral status at discharge: cooperative , Functional status at discharge: uses cane/walker , Overall status at discharge: patient is back to baseline Quality Metrics Clinical Quality Measures [ No reported AMI, CVA or VTE this stay] Coding Level of Care Code 31626 Total time (in minutes) for Discharge: 65 Diagnoses Pneumonia J18.9 Laterality: bilateral Lung location: lower lobe of lung Pneumonia type: due to unspecified organism Acute hypoxic respiratory failure J96.01 Dehydration E86.0 Leukocytosis D72.829 Hypophosphatemia E83.39
--- NOTE | 2025-06-06 11:14 | PC.NURSE ---
Called report to Vivi Haynes LPN at [facility].
== END 2025-06-06 12:00 | disposition skilled nursing facility (03) | DRG 189 ==
LOC: ER 20:59 → MEDSURG 21:05
PROVIDERS: Internal Medicine; Admitting Provider Internal Medicine; Emergency Provider Physician Assistant; PCP Internal Medicine; Visit Provider Student in an Organized Health Care Education/Training Program
DX: J96.01 Acute respiratory failure with hypoxia (principal); J18.9 Pneumonia, unspecified organism; N17.9 Acute kidney failure, unspecified; E86.0 Dehydration; D72.829 Elevated white blood cell count, unspecified; E83.39 Other disorders of phosphorus metabolism; I50.9 Heart failure, unspecified; Z99.81 Dependence on supplemental oxygen; Z79.82 Long term (current) use of aspirin
CPT/HCPCS: 36415; 71045; 80048; 80053; 80061; 82607; 82746; 83036; 83540; 83550; 83605; 83735; 83880; 84100; 84145; 84443; 85007; 85025; 87637; 92610; 93005; 94640; 96365; 96372; 96375; 97161; 97530; 99285; J0696; J1644; J2060; J2270; J2470; J3480; J3490; J7030; J7626; J9999